=== PATIENT | female | born 1980 | race Caucasian/White ===

== ENCOUNTER → 2017-02-10 | Outpatient (CLI) | payer BC ==
[2017-02-10 15:07] LABS: ALT 67 U/L (9-52); AST 84 U/L (14-36); Alkaline Phosphatase 92 U/L (38-126); Anion Gap 13 mmol/L; Blood Urea Nitrogen 10 mg/dL (7-17); Carbon Dioxide 34 mmol/L (22-30); Chloride 86 mmol/L (98-107); Glucose 312 mg/dL (74-99); Non-African American GFR(MDRD) >60 (>60 ml/min/1.73 sqM); Sodium 133 mmol/L (137-145); Total Bilirubin 0.7 mg/dL (0.2-1.3)
[2017-02-10 15:09] LABS: Potassium 2.7 mmol/L (3.5-5.1)
[2017-02-10 18:56] LABS: Hemoglobin A1C 10.6 % (4.2-6.1)
== END | disposition home or self-care (01) ==
LOC: LABWHC1 14:28
PROVIDERS: ATTEND Psychiatry & Neurology Neurology
DX: R42 Dizziness and giddiness (principal); R90.82 White matter disease, unspecified; H53.8 Other visual disturbances; E11.9 Type 2 diabetes mellitus without complications
CPT/HCPCS: 36415; 80053; 83036

== ENCOUNTER → 2017-02-16 | Outpatient (CLI) | payer BC ==
--- NOTE | 2017-02-16 11:01 | MR ---
EXAMINATION TYPE: MR brain wo/w con DATE OF EXAM: 02/16/2017 COMPARISON: NONE HISTORY: MS TECHNIQUE: Multiplanar, multisequence images of the brain and brainstem is performed without and with IV contras t, utilizing 20 mL intravenous MultiHance . FINDINGS: Diffusion weighted images demonstrate no evidence of a recent infarct or other diffusion ab normality. There is no extra-axial fluid collection. There is vague periventricular hyperintensity o n inversion recovery and T2-weighted sequences especially about the posterior horns of the lateral ve ntricles, some scattered hyperintensities are present, approximately 5 lesions measuring only approxi mately 3 mm in size. The ventricular system and cisternal spaces are normal in size and appearance. The brain volume is age appropriate. Midline structures demonstrate normal morphology. The craniocervical junction appears within normal limits. Post contrast images demonstrate no abnormal enhancement. The dural venous sinuses appear pa tent. The visualized sinuses are clear and the globes are intact. IMPRESSION: Nonspecific white matter demyelination as described. Findings could be compatible with mu ltiple sclerosis.
== END | disposition home or self-care (01) ==
LOC: RADMRIMAIN 09:29
PROVIDERS: ATTEND Nurse Practitioner Acute Care
DX: R90.82 White matter disease, unspecified (principal)
CPT/HCPCS: 70553; A9577

== ENCOUNTER → 2017-02-17 | Outpatient (CLI) | payer BC ==
--- NOTE | 2017-02-17 15:12 | MR ---
EXAMINATION TYPE: MR cervical spine wo con DATE OF EXAM: 02/17/2017 COMPARISON: MR brain 02/16/2017 HISTORY: cervicalgia TECHNIQUE: Multiplanar, multisequence images of the cervical spine were acquired. C2-C3: No evidence for degenerative disc disease. No disc bulge/herniation or protrusion. No Canal stenosis. Foramina are patent bilaterally. C3-C4: Posterior extension of endplate disc complex to the left of midline causes minimal anterior la teral mass effect on the thecal sac. No significant central stenosis or foraminal encroachment. C4-C5: No evidence for degenerative disc disease. No disc bulge/herniation or protrusion. No Canal stenosis. Foramina are patent bilaterally. C5-C6: Minimal posterior spurring, endplate disc complex extends towards the left neural foramen caus ing minimal foraminal encroachment. No significant central stenosis. C6-C7: Broad-based posterior disc bulge causes anterior mass effect on the thecal sac. Lateral extens ion of endplate disc complex causes mild bilateral foraminal encroachment. C7-T1: Right posterior paracentral disc herniation, endplate disc complex causes anterolateral mass e ffect on the thecal sac. No significant central stenosis or foraminal encroachment. Cervical segments are intact. There is normal alignment. Cervical spinal cord is of normal signal. Craniovertebral junction relationships are within normal limits. Suspect a thoracic scoliosis. IMPRESSION: Mild degenerative disc disease, spinal curvature as described.
== END | disposition home or self-care (01) ==
LOC: RADMRIMAIN 09:38
PROVIDERS: ATTEND Nurse Practitioner Acute Care
DX: M50.31 Other cervical disc degeneration, high cervical region (principal); M43.8X2 Other specified deforming dorsopathies, cervical region; G35 Multiple sclerosis
CPT/HCPCS: 72141

== ENCOUNTER 2017-03-03 10:16 | Emergency (ER) | payer BC ==
[2017-03-03] MEDS ORDERED: SODIUM CHLORIDE 0.9% 1,000 ML IV STA ×2 (10:42)
[2017-03-03] MEDS ORDERED: cloNIDine HCL 0.1 MG TAB PO STA (10:43)
--- NOTE | 2017-03-03 11:35 | ED ---
General Adult HPI - General Chief complaint: Recheck/Abnormal Lab/Rx Stated complaint: METHODONE WITHDRAWAL Time Seen by Provider: 03/03/17 10:32 Source: patient Mode of arrival: ambulatory Limitations: no limitations - History of Present Illness Initial comments: This 37-year-old white female presents with a complaint of feeling very shaky and sweaty. She states that this is been going on for approximately one week. She apparently has a history of MS and underwent steroid treatment last week. She states that she had 2 rounds of high-dose steroids at our hospital. Instead time her symptoms have started and she feels as though the steroids have interacted with her methadone and that her methadone is no longer effective. She denies any chest pain or shortness of breath. She denies any fever or chills. She denies any change in her chronic MS related urinary symptoms. She states that she has felt very angry at times and is snapping at her family members. She states that she was told by her primary doctor to come to the ER for further evaluation. She is currently on 115 mg of methadone daily and has been receiving the medication every day. She also is on Xanax and Ritalin. No other complaints or modifying factors. - Related Data Home Medications Medication Instructions Recorded Confirmed Albuterol Sulfate [Proair Hfa] 1 - 2 puff INHALATION RT-Q6H PRN 02/22/17 Furosemide [Lasix] 40 mg PO DAILY 02/22/17 03/03/17 Gabapentin 600 mg PO TID 02/22/17 03/03/17 Methadone HCl [Methadose] 115 mg PO DAILY 02/22/17 03/03/17 Potassium Chloride [Klor-Con 10] 10 meq PO BID 02/22/17 03/03/17 glipiZIDE [Glucotrol] 10 mg PO HS 02/22/17 03/03/17 ALPRAZolam [Xanax] 0.25 mg PO BID PRN 03/03/17 03/03/17 Cephalexin [Keflex] 500 mg PO TID 03/03/17 03/03/17 Ergocalciferol [Vitamin D2] 50,000 unit PO MO 03/03/17 03/03/17 Methylphenidate HCl [Ritalin] 20 mg PO TID 03/03/17 03/03/17 Ondansetron [Zofran] 4 mg PO Q8HR PRN 03/03/17 03/03/17 Previous Rx's Medication Instructions Recorded cloNIDine HCL [Catapres] 0.1 mg PO BID #10 tab 03/03/17 Allergies Allergy/AdvReac Type Severity Reaction Status Date / Time duloxetine [From Cymbalta] Allergy Severe Unknown Verified 03/03/17 11:00 pregabalin [From Lyrica] Allergy Swelling Verified 03/03/17 11:00 sertraline [From Zoloft] Allergy Swelling Verified 03/03/17 11:00 tree nut Allergy Unknown Verified 03/03/17 11:00 Review of Systems ROS Statement: Those systems with pertinent positive or pertinent negative responses have been documented in the HPI. ROS Other: All systems not noted in ROS Statement are negative. Past Medical History Past Medical History: Asthma, Diabetes Mellitus, Hyperlipidemia, Hypertension, Liver Disease, Musculoskeletal Disorder, Neurologic Disorder, Osteoarthritis (OA ), Pneumonia, Skin Disorder, Thyroid Disorder Additional Past Medical History / Comment(s): MS, methadone treatments for chronic pain, chronic hypokalemia, heart murmur, mild left chamber enlargment of heart, psoriasis, blood and protien in urine History of Any Multi-Drug Resistant Organisms: None Reported Past Surgical History: Section Additional Past Surgical History / Comment(s): carpal tunnel right, bilateral breast reduction, c/s x2, D&C Past Psychological History: ADD/ADHD, Anxiety Smoking Status: Current every day smoker Past Alcohol Use History: None Reported Past Drug Use History: Prescription Drug Abuse General Exam - General Exam Comments Initial Comments: GENERAL: The patient is well nourished and well hydrated. VITAL SIGNS: Heart rate, blood pressure, respiratory rate reviewed as recorded in nurse's notes. EYES: Pupils are round and reactive. Extraocular movements are intact. No conjunctival / lid redness or swelling. ENT: No external evidence of injury, swelling, or ecchymosis. Airway is patent. Throat is clear. NECK: Nontender. No swelling or evidence of injury. No subcutaneous emphysema. Trachea is midline. No thyroid mass. HEART: Regular rate and rhythm. Good peripheral pulses. LUNGS/CHEST: Breath sounds clear and equal bilaterally. No rales, rhonchi, or wheezes. No ecchymosis, subcutaneous emphysema, or tenderness. ABDOMEN: Abdomen soft without tenderness. No palpable masses or organomegaly. No peritoneal signs. No abdominal wall swelling or ecchymosis. EXTREMITIES: No extremity tenderness. Normal muscle tone and function. No thoracolumbar tenderness. NEUROLOGIC: Sensation is grossly intact. Cranial nerve exam reveals face is symmetrical, tongue is midline, speech is clear. SKIN: No abrasions or ecchymosis is noted. No induration or masses noted. PSYCHIATRIC: Alert and oriented. Appears anxious at times. Limitations: no limitations Course Vital Signs 03/03/17 03/03/17 10:21 13:10 Temperature 97.5 F L Pulse Rate 92 96 Respiratory 18 20 Rate Blood Pressure 160/86 139/74 O2 Sat by Pulse 96 100 Oximetry Medical Decision Making - Medical Decision Making The patient was seen and examined. All diagnostics were reviewed. An IV is started and she is hydrated. Her blood pressure is elevated and she received clonidine 0.1 mg orally. She also had an EKG done which shows a normal sinus rhythm at a rate of 96. There is no acute ST-T wave changes noted. The heart rate is 96, MS interval is 132, QRS duration is 92, and QTC intervals 472. The magnesium is slightly low and this is replaced. She did receive ample fluid hydration for dehydration. The other labs are essentially within normal limits with minor deviations. She seems to think that her methadone is not working properly due to the steroids. Overall, it is felt that she more likely has adverse effects of the steroids. Nevertheless, she is feeling much improved after clonidine. Her blood pressure did improve as well. The case is discussed with her primary care physician and he would like me to contact her neurologist. Case is discussed with Dr. Barrett and he also feels that it likely is an adverse effect of the high-dose steroids. He apparently is seeing her in a couple of days for some additional neurologic testing and can reevaluate her at that time. It is felt as though she is stable for discharge and is in much less distress on recheck. - Lab Data Result diagrams: 03/03/17 11:11 03/03/17 11:11 Lab Results 03/03/17 03/03/17 03/03/17 Range/Units 11:11 11:11 11:11 WBC 9.7 (3.8-10.6) k/uL RBC 5.01 (3.80-5.40) m/uL Hgb 15.2 (11.4-16.0) gm/dL Hct 41.7 (34.0-46.0) % MCV 83.2 (80.0-100.0) fL MCH 30.4 (25.0-35.0) pg MCHC 36.5 (31.0-37.0) g/dL RDW 14.1 (11.5-15.5) % Plt Count 210 (150-450) k/uL Neutrophils % 65 % Lymphocytes % 27 % Monocytes % 3 % Eosinophils % 3 % Basophils % 1 % Neutrophils # 6.3 (1.3-7.7) k/uL Lymphocytes # 2.6 (1.0-4.8) k/uL Monocytes # 0.3 (0-1.0) k/uL Eosinophils # 0.3 (0-0.7) k/uL Basophils # 0.1 (0-0.2) k/uL PT 10.1 (9.0-12.0) sec INR 1.0 (<1.1) APTT 23.3 (22.0-30.0) sec Sodium 133 L (137-145) mmol/L Potassium 4.6 (3.5-5.1) mmol/L Chloride 97 L (98-107) mmol/L Carbon Dioxide 19 L (22-30) mmol/L Anion Gap 17 mmol/L BUN 15 (7-17) mg/dL Creatinine 0.38 L (0.52-1.04) mg/dL Est GFR (MDRD) Af Amer >60 (>60 ml/min/1.73 sqM) Est GFR (MDRD) Non-Af >60 (>60 ml/min/1.73 sqM) Glucose 246 H (74-99) mg/dL Calcium 10.2 (8.4-10.2) mg/dL Phosphorus 3.5 (2.5-4.5) mg/dL Magnesium 1.4 L (1.6-2.3) mg/dL Total Bilirubin 0.7 (0.2-1.3) mg/dL AST 46 H (14-36) U/L ALT 38 (9-52) U/L Alkaline Phosphatase 73 (38-126) U/L Total Protein 7.7 (6.3-8.2) g/dL Albumin 4.4 (3.5-5.0) g/dL TSH 2.160 (0.465-4.680) mIU/L Urine Color Urine Appearance (Clear) Urine pH (5.0-8.0) Ur Specific [place] (1.001-1.035) Urine Protein (Negative) Urine Glucose (UA) (Negative) Urine Ketones (Negative) Urine Blood (Negative) Urine Nitrite (Negative) Urine Bilirubin (Negative) Urine Urobilinogen (<2.0) mg/dL Ur Leukocyte Esterase (Negative) Urine RBC (0-5) /hpf Urine WBC (0-5) /hpf Ur Squamous Epith Cells (0-4) /hpf Urine Mucus (None) /hpf Acetone, Qual Negative (Negative) 03/03/17 Range/Units 11:11 WBC (3.8-10.6) k/uL RBC (3.80-5.40) m/uL Hgb (11.4-16.0) gm/dL Hct (34.0-46.0) % MCV (80.0-100.0) fL MCH (25.0-35.0) pg MCHC (31.0-37.0) g/dL RDW (11.5-15.5) % Plt Count (150-450) k/uL Neutrophils % % Lymphocytes % % Monocytes % % Eosinophils % % Basophils % % Neutrophils # (1.3-7.7) k/uL Lymphocytes # (1.0-4.8) k/uL Monocytes # (0-1.0) k/uL Eosinophils # (0-0.7) k/uL Basophils # (0-0.2) k/uL PT (9.0-12.0) sec INR (<1.1) APTT (22.0-30.0) sec Sodium (137-145) mmol/L Potassium (3.5-5.1) mmol/L Chloride (98-107) mmol/L Carbon Dioxide (22-30) mmol/L Anion Gap mmol/L BUN (7-17) mg/dL Creatinine (0.52-1.04) mg/dL Est GFR (MDRD) Af Amer (>60 ml/min/1.73 sqM) Est GFR (MDRD) Non-Af (>60 ml/min/1.73 sqM) Glucose (74-99) mg/dL Calcium (8.4-10.2) mg/dL Phosphorus (2.5-4.5) mg/dL Magnesium (1.6-2.3) mg/dL Total Bilirubin (0.2-1.3) mg/dL AST (14-36) U/L ALT (9-52) U/L Alkaline Phosphatase (38-126) U/L Total Protein (6.3-8.2) g/dL Albumin (3.5-5.0) g/dL TSH (0.465-4.680) mIU/L Urine Color Yellow Urine Appearance Cloudy H (Clear) Urine pH 6.0 (5.0-8.0) Ur Specific [place] 1.022 (1.001-1.035) Urine Protein 3+ H (Negative) Urine Glucose (UA) 4+ H (Negative) Urine Ketones 1+ H (Negative) Urine Blood Small H (Negative) Urine Nitrite Negative (Negative) Urine Bilirubin Negative (Negative) Urine Urobilinogen <2.0 (<2.0) mg/dL Ur Leukocyte Esterase Negative (Negative) Urine RBC 2 (0-5) /hpf Urine WBC 3 (0-5) /hpf Ur Squamous Epith Cells 12 H (0-4) /hpf Urine Mucus Rare H (None) /hpf Acetone, Qual (Negative) Disposition Clinical Impression: Hypertension, Anxiety, Multiple sclerosis, Chronic narcotic use, Shakiness, Dehydration, Hypomagnesemia Disposition: HOME SELF-CARE Condition: Good Instructions: Hypertension (ED), Hypomagnesemia (ED), Dehydration (ED) Prescriptions: cloNIDine HCL [Catapres] 0.1 mg PO BID #10 tab Referrals: Elier Andrew MD [Primary Care Provider] - 1-2 days Adrianna Barrett MD [STAFF PHYSICIAN] - 03/05/17 Time of Disposition: 14:11
[2017-03-03 11:42] LABS: Basophils # (A) 0.1 k/uL (0-0.2); Basophils % (A) 1 %; Eosinophils # (A) 0.3 k/uL (0-0.7); Eosinophils % (A) 3 %; HCT 41.7 % (34.0-46.0); HDW 3.05; HGB 15.2 gm/dL (11.4-16.0); Luc % (Auto) 2; Lymphocytes # (A) 2.6 k/uL (1.0-4.8); Lymphocytes % (A) 27 %; MCH 30.4 pg (25.0-35.0); MCHC 36.5 g/dL (31.0-37.0); MCV 83.2 fL (80.0-100.0); Monocytes # (A) 0.3 k/uL (0-1.0); Monocytes % (A) 3 %; Neutrophils # (A) 6.3 k/uL (1.3-7.7); Neutrophils % (A) 65 %; RBC 5.01 m/uL (3.80-5.40); RDW 14.1 % (11.5-15.5); WBC 9.7 k/uL (3.8-10.6); WBC (Perox) 9.19
[2017-03-03 11:53] LABS: Anion Gap 17 mmol/L; Carbon Dioxide 19 mmol/L (22-30); Chloride 97 mmol/L (98-107); Sodium 133 mmol/L (137-145)
[2017-03-03 12:03] LABS: Partial Thromboplastin Time 23.3 sec (22.0-30.0); Prothrombin Time 10.1 sec (9.0-12.0)
[2017-03-03 12:12] LABS: Appearance,Urine Cloudy (Clear); Bilirubin,Urine Negative (Negative); Glucose,Urine (UA) 4+ (Negative); Ketones,Urine 1+ (Negative); Leukocyte Esterase,Urine Negative (Negative); Mucus,Urine Rare /hpf; Nitrite,Urine Negative (Negative); Particle Count 4562; Protein,Urine 3+ (Negative); RBC,Urine 2 /hpf (0-5); Specific Gravity,Urine 1.022 (1.001-1.035); Squamous Epithelial Cell,Urine 12 /hpf (0-4); UA Billing (MACRO vs. MICRO) MICRO; Urobilinogen,Urine <2.0 mg/dL (<2.0); WBC,Urine 3 /hpf (0-5)
[2017-03-03 12:21] LABS: ALT 38 U/L (9-52); AST 46 U/L (14-36); Alkaline Phosphatase 73 U/L (38-126); Blood Urea Nitrogen 15 mg/dL (7-17); Calcium 10.2 mg/dL (8.4-10.2); Glucose 246 mg/dL (74-99); Magnesium 1.4 mg/dL (1.6-2.3); Non-African American GFR(MDRD) >60 (>60 ml/min/1.73 sqM); Phosphorous 3.5 mg/dL (2.5-4.5); Total Bilirubin 0.7 mg/dL (0.2-1.3); Total Protein 7.7 g/dL (6.3-8.2)
[2017-03-03] MEDS ORDERED: MAGNESIUM SULFATE-D5W PMX 1 GM in DEXTROSE/WATER 1 100ML.BAG IVPB ONE (12:55)
[2017-03-03 12:58] LABS: Potassium 4.6 mmol/L (3.5-5.1)
[2017-03-03 14:46] VITALS: BP 141/79; PULSE 89; RESP 18; TEMP 97.3
== END 2017-03-03 14:54 | disposition home or self-care (01) ==
LOC: EC 10:16
DX: E86.0 Dehydration (principal); E83.42 Hypomagnesemia; Z79.891 Long term (current) use of opiate analgesic; G35 Multiple sclerosis; F41.9 Anxiety disorder, unspecified; I10 Essential (primary) hypertension; E11.9 Type 2 diabetes mellitus without complications; L98.9 Disorder of the skin and subcutaneous tissue, unspecified; F90.9 Attention-deficit hyperactivity disorder, unspecified type; F17.200 Nicotine dependence, unspecified, uncomplicated; Z79.84 Long term (current) use of oral hypoglycemic drugs; Z79.899 Other long term (current) drug therapy; Z88.8 Allergy status to other drugs, medicaments and biological substances; Z91.018 Allergy to other foods
CPT/HCPCS: 36415; 93005; 80053; 82009; 83735; 84100; 84443; 85025; 85610; 85730; 81001; 99284; 96365; 96361 ×3; J3475

== ENCOUNTER 2017-04-04 20:55 | Inpatient (IN) | payer BC ==
[2017-04-04] MEDS ORDERED: MORPHINE SULFATE 4 MG/ML SYRINGE IV STA (20:59)
[2017-04-04] MEDS ORDERED: SODIUM CHLORIDE 0.9% 1,000 ML IV STA ×3 (20:59→22:53)
[2017-04-04] MEDS ORDERED: ONDANSETRON 4 MG/2 ML VIAL IVP STA (20:59)
[2017-04-04] MEDS ORDERED: RX INFO: IV CONTRAST WAS GIVEN 1 EACH MISC MISCELLANE PRN (20:59)
[2017-04-04] MEDS ORDERED: ACETAMINOPHEN IV (For NPO) 1,000 MG in EMPTY BAG 1 BAG IVPB STA (21:18)
[2017-04-04] MEDS ORDERED: KETOROLAC 30 MG/ML 1 ML VIAL IVP STA (21:18)
--- NOTE | 2017-04-04 21:18 | ED ---
General Adult HPI - General Chief complaint: Abdominal Pain Stated complaint: abd pain Time Seen by Provider: 04/04/17 20:57 Source: EMS, RN notes reviewed, old records reviewed Mode of arrival: EMS Limitations: no limitations - History of Present Illness Initial comments: This is a 37-year-old female here for evaluation of down pain. Bowel pain nausea and diarrhea. Patient has history of MS. Patient fits family members including daughter who is also sick. Patient is complaining of diffuse generalized abdominal pain. Nausea. Vomiting. No history of similar symptoms. No history of bowel surgery. - Related Data Home Medications Medication Instructions Recorded Confirmed Albuterol Sulfate [Proair Hfa] 1 - 2 puff INHALATION RT-Q6H PRN 02/22/17 Furosemide [Lasix] 40 mg PO TID 02/22/17 04/04/17 Potassium Chloride [Klor-Con 10] 10 meq PO BID 02/22/17 04/04/17 ALPRAZolam [Xanax] 0.25 mg PO BID PRN 03/03/17 04/04/17 Ergocalciferol [Vitamin D2] 50,000 unit PO MO 03/03/17 04/04/17 Methylphenidate HCl [Ritalin] 20 mg PO TID 03/03/17 04/04/17 Ondansetron [Zofran] 4 mg PO Q8HR PRN 03/03/17 04/04/17 Gabapentin [Neurontin] 600 mg PO TID 04/04/17 04/04/17 Methadone HCl [Methadone Intensol] 115 mg PO DAILY 04/04/17 04/04/17 Allergies Allergy/AdvReac Type Severity Reaction Status Date / Time duloxetine [From Cymbalta] Allergy Severe Unknown Verified 04/04/17 22:08 pregabalin [From Lyrica] Allergy Swelling Verified 04/04/17 22:08 sertraline [From Zoloft] Allergy Swelling Verified 04/04/17 22:08 tree nut Allergy Unknown Verified 04/04/17 22:08 Review of Systems ROS Statement: Those systems with pertinent positive or pertinent negative responses have been documented in the HPI. ROS Other: All systems not noted in ROS Statement are negative. Past Medical History Past Medical History: Asthma, Diabetes Mellitus, Hyperlipidemia, Hypertension, Liver Disease, Musculoskeletal Disorder, Neurologic Disorder, Osteoarthritis (OA ), Pneumonia, Skin Disorder, Thyroid Disorder Additional Past Medical History / Comment(s): MS, methadone treatments for chronic pain, chronic hypokalemia, heart murmur, mild left chamber enlargment of heart, psoriasis, blood and protien in urine History of Any Multi-Drug Resistant Organisms: None Reported Past Surgical History: Section Additional Past Surgical History / Comment(s): carpal tunnel right, bilateral breast reduction, c/s x2, D&C Past Psychological History: ADD/ADHD, Anxiety Smoking Status: Current every day smoker Past Alcohol Use History: Daily Past Drug Use History: Prescription Drug Abuse General Exam Limitations: no limitations General appearance: alert, in no apparent distress Head exam: Present: atraumatic, normocephalic, normal inspection Eye exam: Present: normal appearance, PERRL, EOMI. Absent: scleral icterus, conjunctival injection, periorbital swelling ENT exam: Present: normal exam, mucous membranes moist Neck exam: Present: normal inspection. Absent: tenderness, meningismus, lymphadenopathy Respiratory exam: Present: normal lung sounds bilaterally. Absent: respiratory distress, wheezes, rales, rhonchi, stridor Cardiovascular Exam: Present: regular rate, normal rhythm, normal heart sounds. Absent: systolic murmur, diastolic murmur, rubs, gallop, clicks GI/Abdominal exam: Present: soft, normal bowel sounds. Absent: distended, tenderness, guarding, rebound, rigid Extremities exam: Present: normal inspection, full ROM, normal capillary refill. Absent: tenderness, pedal edema, joint swelling, calf tenderness Back exam: Present: normal inspection Neurological exam: Present: alert, oriented X3, CN II-XII intact Psychiatric exam: Present: normal affect, normal mood Skin exam: Present: warm, dry, intact, normal color. Absent: rash Course Vital Signs 04/04/17 04/04/17 21:01 22:27 Temperature 101.4 F H Pulse Rate 107 H 116 H Respiratory 20 20 Rate Blood Pressure 170/108 181/94 O2 Sat by Pulse 96 94 L Oximetry - Reevaluation(s) Reevaluation #1: 04/04/17 22:44 Patient's pain is well-controlled at this time EKG Findings - EKG Comments: EKG Findings:: EKG shows sinus tachycardia rate of 108, [place] 126, QRS 80, QTC 527 Medical Decision Making - Medical Decision Making [id number] ER for evaluation of the pain. Patient found to be in DKA, Yael for DKA protocol. Patient also with fever, - Lab Data Result diagrams: 04/04/17 22:10 04/04/17 22:10 Lab Results 04/04/17 04/04/17 04/04/17 Range/Units 21:44 22:10 22:10 WBC 11.3 H (3.8-10.6) k/uL RBC 5.88 H (3.80-5.40) m/uL Hgb 17.4 H (11.4-16.0) gm/dL Hct 50.2 H (34.0-46.0) % MCV 85.3 (80.0-100.0) fL MCH 29.6 (25.0-35.0) pg MCHC 34.7 (31.0-37.0) g/dL RDW 14.7 (11.5-15.5) % Plt Count 288 (150-450) k/uL Neutrophils % 85 % Lymphocytes % 11 % Monocytes % 2 % Eosinophils % 1 % Basophils % 1 % Neutrophils # 9.6 H (1.3-7.7) k/uL Lymphocytes # 1.3 (1.0-4.8) k/uL Monocytes # 0.3 (0-1.0) k/uL Eosinophils # 0.1 (0-0.7) k/uL Basophils # 0.1 (0-0.2) k/uL Poikilocytosis Slight Sodium 133 L (137-145) mmol/L Potassium 4.8 (3.5-5.1) mmol/L Chloride 99 (98-107) mmol/L Carbon Dioxide 16 L (22-30) mmol/L Anion Gap 18 mmol/L BUN 13 (7-17) mg/dL Creatinine 0.50 L (0.52-1.04) mg/dL Est GFR (MDRD) Af Amer >60 (>60 ml/min/1.73 sqM) Est GFR (MDRD) Non-Af >60 (>60 ml/min/1.73 sqM) Glucose 530 H* (74-99) mg/dL Plasma Lactic Acid David (0.7-2.0) mmol/L Calcium 8.7 (8.4-10.2) mg/dL Phosphorus 3.6 (2.5-4.5) mg/dL Magnesium 1.3 L (1.6-2.3) mg/dL Total Bilirubin 1.4 H (0.2-1.3) mg/dL AST 32 (14-36) U/L ALT 50 (9-52) U/L Alkaline Phosphatase 99 (38-126) U/L Total Protein 7.2 (6.3-8.2) g/dL Albumin 3.8 (3.5-5.0) g/dL Urine Color Light [place] Urine Appearance Clear (Clear) Urine pH 6.0 (5.0-8.0) Ur Specific [place] 1.026 (1.001-1.035) Urine Protein 3+ H (Negative) Urine Glucose (UA) 4+ H (Negative) Urine Ketones 3+ H (Negative) Urine Blood Large H (Negative) Urine Nitrite Negative (Negative) Urine Bilirubin Negative (Negative) Urine Urobilinogen <2.0 (<2.0) mg/dL Ur Leukocyte Esterase Negative (Negative) Urine RBC >182 H (0-5) /hpf Ur Squamous Epith Cells <1 (0-4) /hpf Hyaline Casts 19 H (0-2) /lpf 04/04/17 Range/Units 22:10 WBC (3.8-10.6) k/uL RBC (3.80-5.40) m/uL Hgb (11.4-16.0) gm/dL Hct (34.0-46.0) % MCV (80.0-100.0) fL MCH (25.0-35.0) pg MCHC (31.0-37.0) g/dL RDW (11.5-15.5) % Plt Count (150-450) k/uL Neutrophils % % Lymphocytes % % Monocytes % % Eosinophils % % Basophils % % Neutrophils # (1.3-7.7) k/uL Lymphocytes # (1.0-4.8) k/uL Monocytes # (0-1.0) k/uL Eosinophils # (0-0.7) k/uL Basophils # (0-0.2) k/uL Poikilocytosis Sodium (137-145) mmol/L Potassium (3.5-5.1) mmol/L Chloride (98-107) mmol/L Carbon Dioxide (22-30) mmol/L Anion Gap mmol/L BUN (7-17) mg/dL Creatinine (0.52-1.04) mg/dL Est GFR (MDRD) Af Amer (>60 ml/min/1.73 sqM) Est GFR (MDRD) Non-Af (>60 ml/min/1.73 sqM) Glucose (74-99) mg/dL Plasma Lactic Acid David 3.3 H* (0.7-2.0) mmol/L Calcium (8.4-10.2) mg/dL Phosphorus (2.5-4.5) mg/dL Magnesium (1.6-2.3) mg/dL Total Bilirubin (0.2-1.3) mg/dL AST (14-36) U/L ALT (9-52) U/L Alkaline Phosphatase (38-126) U/L Total Protein (6.3-8.2) g/dL Albumin (3.5-5.0) g/dL Urine Color Urine Appearance (Clear) Urine pH (5.0-8.0) Ur Specific [place] (1.001-1.035) Urine Protein (Negative) Urine Glucose (UA) (Negative) Urine Ketones (Negative) Urine Blood (Negative) Urine Nitrite (Negative) Urine Bilirubin (Negative) Urine Urobilinogen (<2.0) mg/dL Ur Leukocyte Esterase (Negative) Urine RBC (0-5) /hpf Ur Squamous Epith Cells (0-4) /hpf Hyaline Casts (0-2) /lpf - Radiology Data Radiology results: report reviewed (Chest x-ray negative for acute disease, CT of and pelvis negative for acute disease), image reviewed Critical Care Time Critical Care Time: Yes Total Critical Care Time: 31 Disposition Clinical Impression: Abdominal pain, DKA (diabetic ketoacidoses), Fever Disposition: ADMITTED IP TO THIS [facility] Condition: Serious Referrals: Elier Andrew MD [Primary Care Provider] - 1-2 days
[2017-04-04 22:06] LABS: Appearance,Urine Clear (Clear); Bilirubin,Urine Negative (Negative); Glucose,Urine (UA) 4+ (Negative); Leukocyte Esterase,Urine Negative (Negative); Nitrite,Urine Negative (Negative); Particle Count 1957; Protein,Urine 3+ (Negative); RBC,Urine >182 /hpf (0-5); Specific Gravity,Urine 1.026 (1.001-1.035); Squamous Epithelial Cell,Urine <1 /hpf (0-4); UA Billing (MACRO vs. MICRO) MICRO; Urobilinogen,Urine <2.0 mg/dL (<2.0)
[2017-04-04 22:07] LABS: Ketones,Urine 3+ (Negative)
[2017-04-04 22:24] LABS: Basophils # (A) 0.1 k/uL (0-0.2); Basophils % (A) 1 %; CH 29.3; CHCM 34.6; Eosinophils # (A) 0.1 k/uL (0-0.7); Eosinophils % (A) 1 %; HCT 50.2 % (34.0-46.0); HGB 17.4 gm/dL (11.4-16.0); Luc # (Auto) 0.13; Luc % (Auto) 1; Lymphocytes # (A) 1.3 k/uL (1.0-4.8); Lymphocytes % (A) 11 %; MCH 29.6 pg (25.0-35.0); MCHC 34.7 g/dL (31.0-37.0); MCV 85.3 fL (80.0-100.0); Mean Platelet Volume 6.9; Monocytes # (A) 0.3 k/uL (0-1.0); Monocytes % (A) 2 %; Neutrophils # (A) 9.6 k/uL (1.3-7.7); Neutrophils % (A) 85 %; Poikilocytosis Slight; RBC 5.88 m/uL (3.80-5.40); RDW 14.7 % (11.5-15.5); WBC 11.3 k/uL (3.8-10.6); WBC (Perox) 11.46
[2017-04-04 22:34] LABS: ALT 50 U/L (9-52); AST 32 U/L (14-36); Alkaline Phosphatase 99 U/L (38-126); Anion Gap 18 mmol/L; Blood Urea Nitrogen 13 mg/dL (7-17); Calcium 8.7 mg/dL (8.4-10.2); Carbon Dioxide 16 mmol/L (22-30); Chloride 99 mmol/L (98-107); Magnesium 1.3 mg/dL (1.6-2.3); Non-African American GFR(MDRD) >60 (>60 ml/min/1.73 sqM); Phosphorous 3.6 mg/dL (2.5-4.5); Potassium 4.8 mmol/L (3.5-5.1); Sodium 133 mmol/L (137-145); Total Bilirubin 1.4 mg/dL (0.2-1.3); Total Protein 7.2 g/dL (6.3-8.2)
[2017-04-04 22:40] LABS: Glucose 530 mg/dL (74-99)
[2017-04-04] MEDS ORDERED: SODIUM CHLORIDE 0.9% 500 ML IV STA ×2 (22:42→22:53)
[2017-04-04] MEDS ORDERED: INSULIN REGULAR BOLUS (FROM DRIP BAG) IV ONE (22:42)
[2017-04-04] MEDS ORDERED: hydrALAZINE HCL 20 MG/ML 1 ML VIAL IVP PRN (23:21)
[2017-04-05] LABS: Glucose,Whole Blood 442 mg/dL (75-99)
[2017-04-05] MEDS: INSULIN REGULAR 100 UNIT in SODIUM CHLORIDE 0.9% 100 ML IV SCH ×2 (00:01→10:15)
--- NOTE | 2017-04-05 00:06 | XR ---
EXAM: XR Chest, 2 Views CLINICAL HISTORY: Reason: Weakness TECHNIQUE: Frontal and lateral views of the chest. COMPARISON: None FINDINGS: Lungs/pleura: Mild prominence of the lung markings may be accentuated by low lung volumes. No focal consolidation. No pleural effusion or pneumothorax. Heart/mediastinum: Borderline prominence of the cardiac silhouette is likely due to accentuation by low lung volumes. Soft tissues: Unremarkable. Bones: No acute fracture. Degenerative changes of the spine. IMPRESSION: Hypoventilatory changes without acute disease.
--- NOTE | 2017-04-05 00:14 | CT ---
EXAM: CT Abdomen and Pelvis With Intravenous Contrast CLINICAL HISTORY: Reason: Pain TECHNIQUE: Axial computed tomography images of the abdomen and pelvis with intravenous contrast. CTDI is 41.5 mGy and DLP is 2755.70 mGy-cm. This CT exam was performed using one or more of the following dose reduction techniques: automated exposure control, adjustment of the mA and/or kV according to patient size, and/or use of iterative reconstruction technique. COMPARISON: None. FINDINGS: Lower thorax: Subsegmental atelectasis lung bases. No pleural or pericardial effusion. ABDOMEN: Liver: Moderate hepatic steatosis. Hepatomegaly. Gallbladder and bile ducts: Multiple hypodense cholesterol stones in the gallbladder. No biliary dilatation. Gallbladder is mildly distended, but surrounding fluid and fat stranding is likely related to the pancreatitis rather than acute cholecystitis. Pancreas: Mildly hypoattenuating parenchyma in the neck with peripancreatic fluid and prominent inflammatory fat stranding extending into the mesentery, omentum and anterior pararenal spaces consistent with acute pancreatitis. No pseudocyst or organized abscess. Mild amount of pancreatic necrosis at that pancreatic neck cannot be excluded. Spleen: Small splenule. No focal lesion. Adrenals: Normal. Kidneys and ureters: Normal. No hydronephrosis or stone. Stomach and bowel: Bowel is normal caliber. No obstruction. No mucosal thickening. Appendix: Normal appendix. PELVIS: Bladder: Unremarkable. No mass. Reproductive: Unremarkable as visualized. ABDOMEN and PELVIS: Intraperitoneal space: Unremarkable. No free air. No significant fluid collection. Bones/joints: Degenerative changes in the spine and transitional anatomy at the lumbosacral junction. Degenerative changes of the hips. No fracture or bone lesion. No dislocation. Soft tissues: Small fat-containing umbilical hernia. Mild subcutaneous edema in the lower anterior abdominal wall. Vasculature: Unremarkable. No abdominal aortic aneurysm. No thrombus is identified in the vascular structures near the pancreas. Lymph nodes: Unremarkable. No enlarged lymph nodes. IMPRESSION: 1. Acute pancreatitis with prominent peripancreatic fluid and inflammation. Small amount of necrosis in the region of the pancreatic neck cannot be excluded, but no other complication identified. 2. Cholelithiasis. Fat stranding and inflammatory change around the gallbladder are likely reactive to the pancreatitis changes rather than acute cholecystitis. 3. Moderate hepatic steatosis and hepatomegaly.
[2017-04-05] MEDS: MAGNESIUM SULFATE-D5W PMX 1 GM in DEXTROSE/WATER 1 100ML.BAG IVPB SCH ×4 (00:16→11:15)
[2017-04-05] MEDS ORDERED: SODIUM CHLORIDE 0.9% 500 ML IV ONE (00:23)
[2017-04-05 00:39] LABS: Glucose,Whole Blood 398 mg/dL (75-99)
[2017-04-05] MEDS: ONDANSETRON 4 MG/2 ML VIAL IVP PRN ×3 (01:45→22:05)
[2017-04-05] MEDS: SODIUM CHLORIDE 0.9% 1,000 ML IV SCH ×3 (01:48→08:03)
[2017-04-05 01:54] LABS: Glucose,Whole Blood 343 mg/dL (75-99)
[2017-04-05 03:05] LABS: Glucose,Whole Blood 297 mg/dL (75-99)
[2017-04-05] MEDS: HYDROmorphone 1 MG/ML 1 ML SYRINGE IVP PRN ×4 (03:38→22:05)
[2017-04-05 04:27] LABS: Glucose,Whole Blood 284 mg/dL (75-99)
[2017-04-05 05:05] LABS: Anion Gap 10 mmol/L; Blood Urea Nitrogen 11 mg/dL (7-17); Carbon Dioxide 18 mmol/L (22-30); Chloride 108 mmol/L (98-107); Glucose 266 mg/dL (74-99); Non-African American GFR(MDRD) >60 (>60 ml/min/1.73 sqM); Potassium 3.7 mmol/L (3.5-5.1); Sodium 136 mmol/L (137-145)
[2017-04-05 05:26] LABS: Glucose,Whole Blood 231 mg/dL (75-99)
[2017-04-05 06:28] LABS: Glucose,Whole Blood 220 mg/dL (75-99)
[2017-04-05 07:31] LABS: Glucose,Whole Blood 247 mg/dL (75-99)
[2017-04-05] MEDS ORDERED: ALPRAZolam 0.25 MG TAB PO PRN (07:44)
[2017-04-05] MEDS: D5-0.45% NACL WITH KCL 20MEQ/L 1,000 ML IV SCH ×3 (07:58→16:09)
[2017-04-05] MEDS: POTASSIUM PHOSPHATE 10 MMOL in SODIUM CHLORIDE 0.9% 250 ML IV SCH ×3 (07:58→11:15)
[2017-04-05] MEDS: PIPERACILLIN-TAZOBACTAM 3.375 GM in DEXTROSE/WATER 1 50ML.BAG IVPB SCH ×3 (07:59→23:36)
[2017-04-05 08:25] LABS: Magnesium 1.5 mg/dL (1.6-2.3)
[2017-04-05 08:26] LABS: Glucose,Whole Blood 194 mg/dL (75-99)
[2017-04-05] MEDS: GABAPENTIN 300 MG CAP PO SCH ×3 (08:53→23:37)
[2017-04-05 08:56] LABS: ALT 35 U/L (9-52); AST 28 U/L (14-36); Alkaline Phosphatase 67 U/L (38-126); Anion Gap 12 mmol/L; Blood Urea Nitrogen 11 mg/dL (7-17); Calcium 6.6 mg/dL (8.4-10.2); Carbon Dioxide 16 mmol/L (22-30); Chloride 107 mmol/L (98-107); Glucose 218 mg/dL (74-99); Non-African American GFR(MDRD) >60 (>60 ml/min/1.73 sqM); Potassium 3.7 mmol/L (3.5-5.1); Sodium 135 mmol/L (137-145); Total Protein 5.6 g/dL (6.3-8.2)
[2017-04-05 08:59] LABS: Basophils # (A) 0.1 k/uL (0-0.2); Basophils % (A) 1 %; CHCM 34.4; Eosinophils % (A) 0 %; HCT 48.4 % (34.0-46.0); HDW 3.38; HGB 16.7 gm/dL (11.4-16.0); Luc # (Auto) 0.09; Luc % (Auto) 1; Lymphocytes # (A) 1.1 k/uL (1.0-4.8); Lymphocytes % (A) 12 %; MCH 29.3 pg (25.0-35.0); MCHC 34.5 g/dL (31.0-37.0); MCV 84.8 fL (80.0-100.0); Mean Platelet Volume 6.9; Monocytes # (A) 0.2 k/uL (0-1.0); Monocytes % (A) 3 %; Neutrophils # (A) 7.5 k/uL (1.3-7.7); Neutrophils % (A) 83 %; RBC 5.71 m/uL (3.80-5.40); RDW 14.7 % (11.5-15.5); WBC (Perox) 8.86
[2017-04-05 09:11] LABS: Glucose,Whole Blood 222 mg/dL (75-99)
[2017-04-05] MEDS ORDERED: Magnesium Replacement Protocol 1 EACH MISC MISCELLANE PRN (09:24)
[2017-04-05] MEDS: LORazepam 2 MG/ML SYRINGE IV PRN ×2 (10:14→17:29)
[2017-04-05 11:35] LABS: Glucose,Whole Blood 210 mg/dL (75-99)
[2017-04-05 11:56] LABS: Hemoglobin A1C 10.4 % (4.2-6.1)
[2017-04-05 12:24] LABS: Glucose,Whole Blood 245 mg/dL (75-99)
[2017-04-05 14:38] LABS: Glucose,Whole Blood 222 mg/dL (75-99)
[2017-04-05 15:28] LABS: Glucose,Whole Blood 193 mg/dL (75-99)
[2017-04-05 16:01] LABS: Glucose,Whole Blood 191 mg/dL (75-99)
[2017-04-05] MEDS: METHADONE 10 MG TAB PO SCH (16:01)
[2017-04-05 17:12] LABS: Glucose,Whole Blood 210 mg/dL (75-99)
--- NOTE | 2017-04-05 17:50 | P.GSCN ---
History of Present Illness Consult date: 04/05/17 Reason for Consult: Acute pancreatitis History of present illness: Patient came to the hospital yesterday evening. The patient was having complaints of abdominal pain and diarrhea. Pain is mostly epigastric with radiation to the back. She has less discomfort when sitting upright. Denies any history of pancreatitis in the past. Patient was admitted with diabetic ketoacidosis. CAT scan of the abdomen showed inflammatory changes of the pancreatic bed. Amylase and lipase are elevated. Gallstones were also seen. Patient says her pain is slightly improved. She has had numerous episodes of nausea and vomiting today. Hemoglobin A1c was over 10. Patient is afebrile. White blood cell count was slightly elevated initially although normalized now. Lactic acid was elevated on admission and is trending downwards with still elevated. IV Zosyn was started by the ER and is still going. She is still receiving fluids at 1 50/h. Review of Systems The patient denies any acute changes in vision or hearing, no dysphagia or odynophagia, no chest pain or shortness of breath, no dysuria or hematuria, no headache, no runny nose, no rectal bleeding or melena, no unexplained weight loss Past Medical History Past Medical History: Asthma, Diabetes Mellitus, Hyperlipidemia, Hypertension, Liver Disease, Musculoskeletal Disorder, Neurologic Disorder, Osteoarthritis (OA ), Pneumonia, Skin Disorder, Thyroid Disorder Additional Past Medical History / Comment(s): MS, methadone treatments for chronic pain, chronic hypokalemia, heart murmur, mild left chamber enlargment of heart, psoriasis, blood and protien in urine History of Any Multi-Drug Resistant Organisms: None Reported Past Surgical History: Section Additional Past Surgical History / Comment(s): carpal tunnel right, bilateral breast reduction, c/s x2, D&C Smoking Status: Current every day smoker Medications and Allergies Home Medications Medication Instructions Recorded Confirmed Type Albuterol Sulfate [Proair Hfa] 1 - 2 puff INHALATION RT-Q6H PRN 02/22/17 History Furosemide [Lasix] 40 mg PO TID 02/22/17 04/04/17 History Potassium Chloride [Klor-Con 10] 10 meq PO BID 02/22/17 04/04/17 History ALPRAZolam [Xanax] 0.25 mg PO BID PRN 03/03/17 04/04/17 History Ergocalciferol [Vitamin D2] 50,000 unit PO MO 03/03/17 04/04/17 History Methylphenidate HCl [Ritalin] 20 mg PO TID 03/03/17 04/04/17 History Ondansetron [Zofran] 4 mg PO Q8HR PRN 03/03/17 04/04/17 History Gabapentin [Neurontin] 600 mg PO TID 04/04/17 04/04/17 History Methadone HCl [Methadone Intensol] 120 mg PO DAILY 04/04/17 04/05/17 History Allergies Allergy/AdvReac Type Severity Reaction Status Date / Time duloxetine [From Cymbalta] Allergy Severe Unknown Verified 04/04/17 22:08 pregabalin [From Lyrica] Allergy Swelling Verified 04/04/17 22:08 sertraline [From Zoloft] Allergy Swelling Verified 04/04/17 22:08 tree nut Allergy Unknown Verified 04/04/17 22:08 Surgical - Exam Vital Signs Temp Pulse Resp BP Pulse Ox 101.4 F H 107 H 20 170/108 96 04/04/17 21:01 04/04/17 21:01 04/04/17 21:01 04/04/17 21:01 04/04/17 21:01 Physical exam: General: unkempt appearing, Well-developed, well-nourished HEENT: Normocephalic, sclerae nonicteric Abdomen: Moderate epigastric tenderness, nondistended Extremities: No edema Neuro: Alert and oriented Results - Labs 04/05/17 08:01 04/05/17 08:09 Abnormal Lab Results - Last 24 Hours (Table) 04/04/17 04/04/17 04/04/17 Range/Units 21:44 22:10 22:10 WBC 11.3 H (3.8-10.6) k/uL RBC 5.88 H (3.80-5.40) m/uL Hgb 17.4 H (11.4-16.0) gm/dL Hct 50.2 H (34.0-46.0) % Neutrophils # 9.6 H (1.3-7.7) k/uL Sodium 133 L (137-145) mmol/L Chloride (98-107) mmol/L Carbon Dioxide 16 L (22-30) mmol/L Creatinine 0.50 L (0.52-1.04) mg/dL Glucose 530 H* (74-99) mg/dL POC Glucose (mg/dL) (75-99) mg/dL Hemoglobin A1c (4.2-6.1) % Plasma Lactic Acid David (0.7-2.0) mmol/L Calcium (8.4-10.2) mg/dL Phosphorus (2.5-4.5) mg/dL Magnesium 1.3 L (1.6-2.3) mg/dL Total Bilirubin 1.4 H (0.2-1.3) mg/dL Total Protein (6.3-8.2) g/dL Albumin (3.5-5.0) g/dL Amylase (30-110) U/L Lipase (23-300) U/L Urine Protein 3+ H (Negative) Urine Glucose (UA) 4+ H (Negative) Urine Ketones 3+ H (Negative) Urine Blood Large H (Negative) Urine RBC >182 H (0-5) /hpf Hyaline Casts 19 H (0-2) /lpf 04/04/17 04/04/17 04/05/17 Range/Units 22:10 23:58 00:37 WBC (3.8-10.6) k/uL RBC (3.80-5.40) m/uL Hgb (11.4-16.0) gm/dL Hct (34.0-46.0) % Neutrophils # (1.3-7.7) k/uL Sodium (137-145) mmol/L Chloride (98-107) mmol/L Carbon Dioxide (22-30) mmol/L Creatinine (0.52-1.04) mg/dL Glucose (74-99) mg/dL POC Glucose (mg/dL) 442 H 398 H (75-99) mg/dL Hemoglobin A1c (4.2-6.1) % Plasma Lactic Acid David 3.3 H* (0.7-2.0) mmol/L Calcium (8.4-10.2) mg/dL Phosphorus (2.5-4.5) mg/dL Magnesium (1.6-2.3) mg/dL Total Bilirubin (0.2-1.3) mg/dL Total Protein (6.3-8.2) g/dL Albumin (3.5-5.0) g/dL Amylase (30-110) U/L Lipase (23-300) U/L Urine Protein (Negative) Urine Glucose (UA) (Negative) Urine Ketones (Negative) Urine Blood (Negative) Urine RBC (0-5) /hpf Hyaline Casts (0-2) /lpf 04/05/17 04/05/17 04/05/17 Range/Units 01:48 01:52 03:02 WBC (3.8-10.6) k/uL RBC (3.80-5.40) m/uL Hgb (11.4-16.0) gm/dL Hct (34.0-46.0) % Neutrophils # (1.3-7.7) k/uL Sodium (137-145) mmol/L Chloride (98-107) mmol/L Carbon Dioxide (22-30) mmol/L Creatinine (0.52-1.04) mg/dL Glucose (74-99) mg/dL POC Glucose (mg/dL) 343 H 297 H (75-99) mg/dL Hemoglobin A1c (4.2-6.1) % Plasma Lactic Acid David 4.5 H* (0.7-2.0) mmol/L Calcium (8.4-10.2) mg/dL Phosphorus (2.5-4.5) mg/dL Magnesium (1.6-2.3) mg/dL Total Bilirubin (0.2-1.3) mg/dL Total Protein (6.3-8.2) g/dL Albumin (3.5-5.0) g/dL Amylase (30-110) U/L Lipase (23-300) U/L Urine Protein (Negative) Urine Glucose (UA) (Negative) Urine Ketones (Negative) Urine Blood (Negative) Urine RBC (0-5) /hpf Hyaline Casts (0-2) /lpf 04/05/17 04/05/17 04/05/17 Range/Units 04:25 04:37 04:37 WBC (3.8-10.6) k/uL RBC (3.80-5.40) m/uL Hgb (11.4-16.0) gm/dL Hct (34.0-46.0) % Neutrophils # (1.3-7.7) k/uL Sodium 136 L (137-145) mmol/L Chloride 108 H (98-107) mmol/L Carbon Dioxide 18 L (22-30) mmol/L Creatinine 0.44 L (0.52-1.04) mg/dL Glucose 266 H (74-99) mg/dL POC Glucose (mg/dL) 284 H (75-99) mg/dL Hemoglobin A1c (4.2-6.1) % Plasma Lactic Acid David (0.7-2.0) mmol/L Calcium (8.4-10.2) mg/dL Phosphorus 1.2 L* (2.5-4.5) mg/dL Magnesium (1.6-2.3) mg/dL Total Bilirubin (0.2-1.3) mg/dL Total Protein (6.3-8.2) g/dL Albumin (3.5-5.0) g/dL Amylase (30-110) U/L Lipase (23-300) U/L Urine Protein (Negative) Urine Glucose (UA) (Negative) Urine Ketones (Negative) Urine Blood (Negative) Urine RBC (0-5) /hpf Hyaline Casts (0-2) /lpf 04/05/17 04/05/17 04/05/17 Range/Units 04:37 05:24 06:26 WBC (3.8-10.6) k/uL RBC (3.80-5.40) m/uL Hgb (11.4-16.0) gm/dL Hct (34.0-46.0) % Neutrophils # (1.3-7.7) k/uL Sodium (137-145) mmol/L Chloride (98-107) mmol/L Carbon Dioxide (22-30) mmol/L Creatinine (0.52-1.04) mg/dL Glucose (74-99) mg/dL POC Glucose (mg/dL) 231 H 220 H (75-99) mg/dL Hemoglobin A1c 10.4 H (4.2-6.1) % Plasma Lactic Acid David (0.7-2.0) mmol/L Calcium (8.4-10.2) mg/dL Phosphorus (2.5-4.5) mg/dL Magnesium (1.6-2.3) mg/dL Total Bilirubin (0.2-1.3) mg/dL Total Protein (6.3-8.2) g/dL Albumin (3.5-5.0) g/dL Amylase (30-110) U/L Lipase (23-300) U/L Urine Protein (Negative) Urine Glucose (UA) (Negative) Urine Ketones (Negative) Urine Blood (Negative) Urine RBC (0-5) /hpf Hyaline Casts (0-2) /lpf 04/05/17 04/05/17 04/05/17 Range/Units 07:30 08:01 08:01 WBC (3.8-10.6) k/uL RBC 5.71 H (3.80-5.40) m/uL Hgb 16.7 H (11.4-16.0) gm/dL Hct 48.4 H (34.0-46.0) % Neutrophils # (1.3-7.7) k/uL Sodium (137-145) mmol/L Chloride (98-107) mmol/L Carbon Dioxide (22-30) mmol/L Creatinine (0.52-1.04) mg/dL Glucose (74-99) mg/dL POC Glucose (mg/dL) 247 H (75-99) mg/dL Hemoglobin A1c (4.2-6.1) % Plasma Lactic Acid David 2.9 H* (0.7-2.0) mmol/L Calcium (8.4-10.2) mg/dL Phosphorus (2.5-4.5) mg/dL Magnesium (1.6-2.3) mg/dL Total Bilirubin (0.2-1.3) mg/dL Total Protein (6.3-8.2) g/dL Albumin (3.5-5.0) g/dL Amylase (30-110) U/L Lipase (23-300) U/L Urine Protein (Negative) Urine Glucose (UA) (Negative) Urine Ketones (Negative) Urine Blood (Negative) Urine RBC (0-5) /hpf Hyaline Casts (0-2) /lpf 04/05/17 04/05/17 04/05/17 Range/Units 08:06 08:09 08:09 WBC (3.8-10.6) k/uL RBC (3.80-5.40) m/uL Hgb (11.4-16.0) gm/dL Hct (34.0-46.0) % Neutrophils # (1.3-7.7) k/uL Sodium 135 L (137-145) mmol/L Chloride (98-107) mmol/L Carbon Dioxide 16 L (22-30) mmol/L Creatinine 0.40 L (0.52-1.04) mg/dL Glucose 218 H (74-99) mg/dL POC Glucose (mg/dL) 194 H (75-99) mg/dL Hemoglobin A1c (4.2-6.1) % Plasma Lactic Acid David (0.7-2.0) mmol/L Calcium 6.6 L (8.4-10.2) mg/dL Phosphorus (2.5-4.5) mg/dL Magnesium 1.5 L (1.6-2.3) mg/dL Total Bilirubin (0.2-1.3) mg/dL Total Protein 5.6 L (6.3-8.2) g/dL Albumin 2.8 L (3.5-5.0) g/dL Amylase 288 H (30-110) U/L Lipase (23-300) U/L Urine Protein (Negative) Urine Glucose (UA) (Negative) Urine Ketones (Negative) Urine Blood (Negative) Urine RBC (0-5) /hpf Hyaline Casts (0-2) /lpf 04/05/17 04/05/17 04/05/17 Range/Units 08:09 09:08 11:14 WBC (3.8-10.6) k/uL RBC (3.80-5.40) m/uL Hgb (11.4-16.0) gm/dL Hct (34.0-46.0) % Neutrophils # (1.3-7.7) k/uL Sodium (137-145) mmol/L Chloride (98-107) mmol/L Carbon Dioxide (22-30) mmol/L Creatinine (0.52-1.04) mg/dL Glucose (74-99) mg/dL POC Glucose (mg/dL) 222 H 210 H (75-99) mg/dL Hemoglobin A1c (4.2-6.1) % Plasma Lactic Acid David (0.7-2.0) mmol/L Calcium (8.4-10.2) mg/dL Phosphorus (2.5-4.5) mg/dL Magnesium (1.6-2.3) mg/dL Total Bilirubin (0.2-1.3) mg/dL Total Protein (6.3-8.2) g/dL Albumin (3.5-5.0) g/dL Amylase (30-110) U/L Lipase 3432 H (23-300) U/L Urine Protein (Negative) Urine Glucose (UA) (Negative) Urine Ketones (Negative) Urine Blood (Negative) Urine RBC (0-5) /hpf Hyaline Casts (0-2) /lpf 04/05/17 04/05/17 04/05/17 Range/Units 12:19 12:23 14:14 WBC (3.8-10.6) k/uL RBC (3.80-5.40) m/uL Hgb (11.4-16.0) gm/dL Hct (34.0-46.0) % Neutrophils # (1.3-7.7) k/uL Sodium (137-145) mmol/L Chloride (98-107) mmol/L Carbon Dioxide (22-30) mmol/L Creatinine (0.52-1.04) mg/dL Glucose (74-99) mg/dL POC Glucose (mg/dL) 245 H 222 H (75-99) mg/dL Hemoglobin A1c (4.2-6.1) % Plasma Lactic Acid David 2.6 H* (0.7-2.0) mmol/L Calcium (8.4-10.2) mg/dL Phosphorus (2.5-4.5) mg/dL Magnesium (1.6-2.3) mg/dL Total Bilirubin (0.2-1.3) mg/dL Total Protein (6.3-8.2) g/dL Albumin (3.5-5.0) g/dL Amylase (30-110) U/L Lipase (23-300) U/L Urine Protein (Negative) Urine Glucose (UA) (Negative) Urine Ketones (Negative) Urine Blood (Negative) Urine RBC (0-5) /hpf Hyaline Casts (0-2) /lpf 04/05/17 04/05/17 04/05/17 Range/Units 15:17 15:58 17:02 WBC (3.8-10.6) k/uL RBC (3.80-5.40) m/uL Hgb (11.4-16.0) gm/dL Hct (34.0-46.0) % Neutrophils # (1.3-7.7) k/uL Sodium (137-145) mmol/L Chloride (98-107) mmol/L Carbon Dioxide (22-30) mmol/L Creatinine (0.52-1.04) mg/dL Glucose (74-99) mg/dL POC Glucose (mg/dL) 193 H 191 H 210 H (75-99) mg/dL Hemoglobin A1c (4.2-6.1) % Plasma Lactic Acid David (0.7-2.0) mmol/L Calcium (8.4-10.2) mg/dL Phosphorus (2.5-4.5) mg/dL Magnesium (1.6-2.3) mg/dL Total Bilirubin (0.2-1.3) mg/dL Total Protein (6.3-8.2) g/dL Albumin (3.5-5.0) g/dL Amylase (30-110) U/L Lipase (23-300) U/L Urine Protein (Negative) Urine Glucose (UA) (Negative) Urine Ketones (Negative) Urine Blood (Negative) Urine RBC (0-5) /hpf Hyaline Casts (0-2) /lpf Microbiology - Last 24 Hours (Table) 04/04/17 21:44 Urine Culture - Preliminary Urine,Voided Diabetes panel 04/04/17 04/05/17 04/05/17 Range/Units 22:10 04:37 04:37 Sodium 133 L 136 L (137-145) mmol/L Potassium 4.8 3.7 (3.5-5.1) mmol/L Chloride 99 108 H (98-107) mmol/L Carbon Dioxide 16 L 18 L (22-30) mmol/L BUN 13 11 (7-17) mg/dL Creatinine 0.50 L 0.44 L (0.52-1.04) mg/dL Glucose 530 H* 266 H (74-99) mg/dL Hemoglobin A1c 10.4 H (4.2-6.1) % Calcium 8.7 (8.4-10.2) mg/dL AST 32 (14-36) U/L ALT 50 (9-52) U/L Alkaline Phosphatase 99 (38-126) U/L Total Protein 7.2 (6.3-8.2) g/dL Albumin 3.8 (3.5-5.0) g/dL 04/05/17 Range/Units 08:09 Sodium 135 L (137-145) mmol/L Potassium 3.7 (3.5-5.1) mmol/L Chloride 107 (98-107) mmol/L Carbon Dioxide 16 L (22-30) mmol/L BUN 11 (7-17) mg/dL Creatinine 0.40 L (0.52-1.04) mg/dL Glucose 218 H (74-99) mg/dL Hemoglobin A1c (4.2-6.1) % Calcium 6.6 L (8.4-10.2) mg/dL AST 28 (14-36) U/L ALT 35 (9-52) U/L Alkaline Phosphatase 67 (38-126) U/L Total Protein 5.6 L (6.3-8.2) g/dL Albumin 2.8 L (3.5-5.0) g/dL Calcium panel 04/04/17 04/05/17 04/05/17 Range/Units 22:10 04:37 08:09 Calcium 8.7 6.6 L (8.4-10.2) mg/dL Phosphorus 3.6 1.2 L* (2.5-4.5) mg/dL Albumin 3.8 2.8 L (3.5-5.0) g/dL Pituitary panel 04/04/17 04/05/17 04/05/17 Range/Units 22:10 04:37 08:09 Sodium 133 L 136 L 135 L (137-145) mmol/L Potassium 4.8 3.7 3.7 (3.5-5.1) mmol/L Chloride 99 108 H 107 (98-107) mmol/L Carbon Dioxide 16 L 18 L 16 L (22-30) mmol/L BUN 13 11 11 (7-17) mg/dL Creatinine 0.50 L 0.44 L 0.40 L (0.52-1.04) mg/dL Glucose 530 H* 266 H 218 H (74-99) mg/dL Calcium 8.7 6.6 L (8.4-10.2) mg/dL Adrenal panel 04/04/17 04/05/17 04/05/17 Range/Units 22:10 04:37 08:09 Sodium 133 L 136 L 135 L (137-145) mmol/L Potassium 4.8 3.7 3.7 (3.5-5.1) mmol/L Chloride 99 108 H 107 (98-107) mmol/L Carbon Dioxide 16 L 18 L 16 L (22-30) mmol/L BUN 13 11 11 (7-17) mg/dL Creatinine 0.50 L 0.44 L 0.40 L (0.52-1.04) mg/dL Glucose 530 H* 266 H 218 H (74-99) mg/dL Calcium 8.7 6.6 L (8.4-10.2) mg/dL Total Bilirubin 1.4 H 1.0 (0.2-1.3) mg/dL AST 32 28 (14-36) U/L ALT 50 35 (9-52) U/L Alkaline Phosphatase 99 67 (38-126) U/L Total Protein 7.2 5.6 L (6.3-8.2) g/dL Albumin 3.8 2.8 L (3.5-5.0) g/dL Assessment and Plan (1) Gallstone pancreatitis Narrative/Plan: Continue ice chips only for now. Continue IV hydration. Repeat lab work tomorrow. Patient will require eventual cholecystectomy but likely later during this admission or shortly after discharge. Status: Acute
[2017-04-05 17:57] LABS: Glucose,Whole Blood 197 mg/dL (75-99)
[2017-04-05 19:07] LABS: Glucose,Whole Blood 195 mg/dL (75-99)
[2017-04-05 20:12] LABS: Glucose,Whole Blood 195 mg/dL (75-99)
[2017-04-05 20:36] LABS: ALT 36 U/L (9-52); AST 27 U/L (14-36); Alkaline Phosphatase 65 U/L (38-126); Anion Gap 8 mmol/L; Blood Urea Nitrogen 8 mg/dL (7-17); Carbon Dioxide 19 mmol/L (22-30); Chloride 103 mmol/L (98-107); Glucose 195 mg/dL (74-99); Non-African American GFR(MDRD) >60 (>60 ml/min/1.73 sqM); Potassium 3.9 mmol/L (3.5-5.1); Sodium 130 mmol/L (137-145); Total Bilirubin 1.1 mg/dL (0.2-1.3); Total Protein 5.2 g/dL (6.3-8.2)
[2017-04-05 20:39] LABS: Calcium 5.7 mg/dL (8.4-10.2)
[2017-04-05 20:59] LABS: Glucose,Whole Blood 172 mg/dL (75-99)
[2017-04-05] MEDS: INSULIN GLARGINE 100 UNIT/ML 10 ML VIAL SQ SCH (21:41)
[2017-04-05] MEDS: INSULIN LISPRO (humaLOG) 300 UNIT/3 ML VIAL SQ SCH (21:44)
[2017-04-05] MEDS ORDERED: ACETAMINOPHEN IV (For NPO) 1,000 MG in EMPTY BAG 1 BAG IVPB ONE (22:17)
[2017-04-05 22:20] LABS: CH 28.8; CHCM 34.2; HCT 48.9 % (34.0-46.0); HDW 3.35; HGB 16.8 gm/dL (11.4-16.0); Immature Gran Flag Moderate; MCH 29.1 pg (25.0-35.0); MCHC 34.3 g/dL (31.0-37.0); MCV 84.9 fL (80.0-100.0); Mean Platelet Volume 6.8; RBC 5.77 m/uL (3.80-5.40); RDW 14.7 % (11.5-15.5); WBC 11.2 k/uL (3.8-10.6)
[2017-04-05 22:55] LABS: Add Differential Manual Differential
[2017-04-05 22:57] LABS: Nucleated Red Blood Cells 0 /100 WBC (0-0); Total Cells Counted 100
--- NOTE | 2017-04-05 23:38 | P.HPIM ---
History of Present Illness H&P Date: 04/05/17 Chief Complaint: Abdominal pain This is a 37-year-old female with past history of uncontrolled diabetes mellitus with his HbA1c of 10, polysubstance abuse currently on methadone 120 mg daily as per patient came to ER for evaluation of abdominal pain along with nausea and diarrhea. Patient has history of MS. Patient states family members including daughter who is also sick. Patient is complaining of diffuse generalized abdominal pain. Nausea. Vomiting. No history of similar symptoms. No history of bowel surgery. Patient had CT of the abdomen and pelvis was done in the ER showed. Pancreatic fluid and possible necrosis. Patient also had gallstones with with fat stranding. General surgery has been consulted for further evaluation. Patient is being treated for acute diabetic ketoacidosis. Patient is requesting IV pain medication. Will start on methadone after verifying with methadone clinic. Review of Systems CONSTITUTIONAL: No fever, no malaise, no fatigue. HEENT: No recent visual problems or hearing problems. Denied any sore throat. CARDIOVASCULAR: No chest pain, orthopnea, PND, no palpitations, no syncope. PULMONARY: , no hemoptysis. No cough or sputum production GASTROINTESTINAL: No diarrhea, no nausea, no vomiting, ABDOMINAL pain present. Normoactive bowel sounds. NEUROLOGICAL: No headaches, no weakness, no numbness. HEMATOLOGICAL: Denies any bleeding or petechiae. GENITOURINARY: Denies any burning micturition, frequency, or urgency. MUSCULOSKELETAL/RHEUMATOLOGICAL: Denies any joint pain, swelling, or any muscle pain. ENDOCRINE: Denies any polyuria or polydipsia. The rest of the 14-point review of systems is negative. Past Medical History Past Medical History: Asthma, Diabetes Mellitus, Hyperlipidemia, Hypertension, Liver Disease, Musculoskeletal Disorder, Neurologic Disorder, Osteoarthritis (OA ), Pneumonia, Skin Disorder, Thyroid Disorder Additional Past Medical History / Comment(s): MS, methadone treatments for chronic pain, chronic hypokalemia, heart murmur, mild left chamber enlargment of heart, psoriasis, blood and protien in urine History of Any Multi-Drug Resistant Organisms: None Reported Past Surgical History: Section Additional Past Surgical History / Comment(s): carpal tunnel right, bilateral breast reduction, c/s x2, D&C Smoking Status: Current every day smoker Medications and Allergies Home Medications Medication Instructions Recorded Confirmed Type Albuterol Sulfate [Proair Hfa] 1 - 2 puff INHALATION RT-Q6H PRN 02/22/17 History Furosemide [Lasix] 40 mg PO TID 02/22/17 04/04/17 History Potassium Chloride [Klor-Con 10] 10 meq PO BID 02/22/17 04/04/17 History ALPRAZolam [Xanax] 0.25 mg PO BID PRN 03/03/17 04/04/17 History Ergocalciferol [Vitamin D2] 50,000 unit PO MO 03/03/17 04/04/17 History Methylphenidate HCl [Ritalin] 20 mg PO TID 03/03/17 04/04/17 History Ondansetron [Zofran] 4 mg PO Q8HR PRN 03/03/17 04/04/17 History Gabapentin [Neurontin] 600 mg PO TID 04/04/17 04/04/17 History Methadone HCl [Methadone Intensol] 120 mg PO DAILY 04/04/17 04/05/17 History Allergies Allergy/AdvReac Type Severity Reaction Status Date / Time duloxetine [From Cymbalta] Allergy Severe Unknown Verified 04/04/17 22:08 pregabalin [From Lyrica] Allergy Swelling Verified 04/04/17 22:08 sertraline [From Zoloft] Allergy Swelling Verified 04/04/17 22:08 tree nut Allergy Unknown Verified 04/04/17 22:08 Physical Exam Vitals: Vital Signs Temp Pulse Pulse Resp BP BP Pulse Ox 04/05/17 18:48 99.7 F H 140/90 04/05/17 16:00 100 F H 120 H 16 145/90 95 04/05/17 14:20 120 H 18 165/94 93 L 04/05/17 12:00 24 04/05/17 09:00 120 H 24 166/100 04/05/17 08:00 120 H 24 166/100 04/05/17 07:00 98.5 F 112 H 28 H 160/89 04/05/17 06:00 120 H 16 139/88 04/05/17 05:00 114 H 19 139/88 04/05/17 04:00 99.3 F 107 H 26 H 94 L 04/05/17 03:00 111 H 21 94 L 04/05/17 02:00 105 H 19 95 04/05/17 01:00 99.3 F 95 30 H 94 L 04/05/17 00:40 157/100 96 04/05/17 00:35 99.3 F 04/05/17 00:22 100.7 F H 102 H 20 160/88 99 04/04/17 22:27 116 H 20 181/94 94 L Intake and Output 04/05/17 04/05/17 04/05/17 06:59 14:59 22:59 Intake Total 047.818 7779.638 Balance 282.736 8767.638 Intake: IV 200 1400 D5-0.45% NaCl with KCl 600 20Meq/l 1,000 ml @ 150 mls/hr IV .Q6H40M [facility] Rx# :[id number] Sodium Chloride 0.9% 1, 200 800 000 ml @ 200 mls/hr IV . Q5H [facility] Rx#:[id number] Intake, IV Titration 48.193 1851.638 Amount Insulin Regular 100 unit 48.193 100.638 In Sodium Chloride 0.9% 100 ml @ 0.1 UNITS/KG/HR 9.84 mls/hr IV .[id number] [facility] Rx#:[id number] Magnesium Sulfate-D5w Pmx 200 1 gm In Dextrose/Water 1 100ml.bag @ 100 mls/hr IVPB Q1H [facility] Rx#: [id number] Piperacillin-Tazobactam 3 551 .375 gm In Dextrose/Water 1 50ml.bag @ 12.5 mls/hr IVPB Q8HR [facility] Rx#: [id number] Potassium Phosphate 10 1000 mmol In Sodium Chloride 0 .9% 250 ml @ 126.667 mls/ hr IV Q2H [facility] Rx#: [id number] Other: Voiding Method Toilet Toilet Toilet # Voids 1 2 1 # Emeses 2 Weight 99.7 kg 99.7 kg Patient Weight 04/06/17 06:59 Weight 99.7 kg PHYSICAL EXAMINATION: Patient is lying in the bed comfortably, appears to be in mild distress, awake alert and oriented.. HEENT: Normocephalic. Neck is supple. Pupils reactive. Nostrils clear. Oral cavity is moist. Ears reveal no drainage. Neck reveals no JVD, carotid bruits, or thyromegaly. CHEST EXAMINATION: Trachea is central. Symmetrical expansion. Lung fitzgerald clear to auscultation and percussion. CARDIAC: Normal S1, S2 with no gallops. No murmurs ABDOMEN: Soft. Bowel sounds normal. Mild epigastric tenderness. No organomegaly. No abdominal bruits. Extremities reveal no edema. Neurologically awake, alert, oriented x3 with well-coordinated movements. Skin: No rash or skin lesions Results CBC & Chem 7: 04/05/17 22:02 04/05/17 20:10 Labs: Abnormal Lab Results - Last 24 Hours (Table) 04/04/17 04/04/17 04/04/17 Range/Units 21:44 22:10 22:10 WBC 11.3 H (3.8-10.6) k/uL RBC 5.88 H (3.80-5.40) m/uL Hgb 17.4 H (11.4-16.0) gm/dL Hct 50.2 H (34.0-46.0) % Neutrophils # 9.6 H (1.3-7.7) k/uL Sodium 133 L (137-145) mmol/L Chloride (98-107) mmol/L Carbon Dioxide 16 L (22-30) mmol/L Creatinine 0.50 L (0.52-1.04) mg/dL Glucose 530 H* (74-99) mg/dL POC Glucose (mg/dL) (75-99) mg/dL Hemoglobin A1c (4.2-6.1) % Plasma Lactic Acid David (0.7-2.0) mmol/L Calcium (8.4-10.2) mg/dL Phosphorus (2.5-4.5) mg/dL Magnesium 1.3 L (1.6-2.3) mg/dL Total Bilirubin 1.4 H (0.2-1.3) mg/dL Total Protein (6.3-8.2) g/dL Albumin (3.5-5.0) g/dL Amylase (30-110) U/L Lipase (23-300) U/L Urine Protein 3+ H (Negative) Urine Glucose (UA) 4+ H (Negative) Urine Ketones 3+ H (Negative) Urine Blood Large H (Negative) Urine RBC >182 H (0-5) /hpf Hyaline Casts 19 H (0-2) /lpf 04/04/17 04/04/17 04/05/17 Range/Units 22:10 23:58 00:37 WBC (3.8-10.6) k/uL RBC (3.80-5.40) m/uL Hgb (11.4-16.0) gm/dL Hct (34.0-46.0) % Neutrophils # (1.3-7.7) k/uL Sodium (137-145) mmol/L Chloride (98-107) mmol/L Carbon Dioxide (22-30) mmol/L Creatinine (0.52-1.04) mg/dL Glucose (74-99) mg/dL POC Glucose (mg/dL) 442 H 398 H (75-99) mg/dL Hemoglobin A1c (4.2-6.1) % Plasma Lactic Acid David 3.3 H* (0.7-2.0) mmol/L Calcium (8.4-10.2) mg/dL Phosphorus (2.5-4.5) mg/dL Magnesium (1.6-2.3) mg/dL Total Bilirubin (0.2-1.3) mg/dL Total Protein (6.3-8.2) g/dL Albumin (3.5-5.0) g/dL Amylase (30-110) U/L Lipase (23-300) U/L Urine Protein (Negative) Urine Glucose (UA) (Negative) Urine Ketones (Negative) Urine Blood (Negative) Urine RBC (0-5) /hpf Hyaline Casts (0-2) /lpf 04/05/17 04/05/17 04/05/17 Range/Units 01:48 01:52 03:02 WBC (3.8-10.6) k/uL RBC (3.80-5.40) m/uL Hgb (11.4-16.0) gm/dL Hct (34.0-46.0) % Neutrophils # (1.3-7.7) k/uL Sodium (137-145) mmol/L Chloride (98-107) mmol/L Carbon Dioxide (22-30) mmol/L Creatinine (0.52-1.04) mg/dL Glucose (74-99) mg/dL POC Glucose (mg/dL) 343 H 297 H (75-99) mg/dL Hemoglobin A1c (4.2-6.1) % Plasma Lactic Acid David 4.5 H* (0.7-2.0) mmol/L Calcium (8.4-10.2) mg/dL Phosphorus (2.5-4.5) mg/dL Magnesium (1.6-2.3) mg/dL Total Bilirubin (0.2-1.3) mg/dL Total Protein (6.3-8.2) g/dL Albumin (3.5-5.0) g/dL Amylase (30-110) U/L Lipase (23-300) U/L Urine Protein (Negative) Urine Glucose (UA) (Negative) Urine Ketones (Negative) Urine Blood (Negative) Urine RBC (0-5) /hpf Hyaline Casts (0-2) /lpf 04/05/17 04/05/17 04/05/17 Range/Units 04:25 04:37 04:37 WBC (3.8-10.6) k/uL RBC (3.80-5.40) m/uL Hgb (11.4-16.0) gm/dL Hct (34.0-46.0) % Neutrophils # (1.3-7.7) k/uL Sodium 136 L (137-145) mmol/L Chloride 108 H (98-107) mmol/L Carbon Dioxide 18 L (22-30) mmol/L Creatinine 0.44 L (0.52-1.04) mg/dL Glucose 266 H (74-99) mg/dL POC Glucose (mg/dL) 284 H (75-99) mg/dL Hemoglobin A1c (4.2-6.1) % Plasma Lactic Acid David (0.7-2.0) mmol/L Calcium (8.4-10.2) mg/dL Phosphorus 1.2 L* (2.5-4.5) mg/dL Magnesium (1.6-2.3) mg/dL Total Bilirubin (0.2-1.3) mg/dL Total Protein (6.3-8.2) g/dL Albumin (3.5-5.0) g/dL Amylase (30-110) U/L Lipase (23-300) U/L Urine Protein (Negative) Urine Glucose (UA) (Negative) Urine Ketones (Negative) Urine Blood (Negative) Urine RBC (0-5) /hpf Hyaline Casts (0-2) /lpf 04/05/17 04/05/17 04/05/17 Range/Units 04:37 05:24 06:26 WBC (3.8-10.6) k/uL RBC (3.80-5.40) m/uL Hgb (11.4-16.0) gm/dL Hct (34.0-46.0) % Neutrophils # (1.3-7.7) k/uL Sodium (137-145) mmol/L Chloride (98-107) mmol/L Carbon Dioxide (22-30) mmol/L Creatinine (0.52-1.04) mg/dL Glucose (74-99) mg/dL POC Glucose (mg/dL) 231 H 220 H (75-99) mg/dL Hemoglobin A1c 10.4 H (4.2-6.1) % Plasma Lactic Acid David (0.7-2.0) mmol/L Calcium (8.4-10.2) mg/dL Phosphorus (2.5-4.5) mg/dL Magnesium (1.6-2.3) mg/dL Total Bilirubin (0.2-1.3) mg/dL Total Protein (6.3-8.2) g/dL Albumin (3.5-5.0) g/dL Amylase (30-110) U/L Lipase (23-300) U/L Urine Protein (Negative) Urine Glucose (UA) (Negative) Urine Ketones (Negative) Urine Blood (Negative) Urine RBC (0-5) /hpf Hyaline Casts (0-2) /f 04/05/17 04/05/17 04/05/17 Range/Units 07:30 08:01 08:01 WBC (3.8-10.6) k/uL RBC 5.71 H (3.80-5.40) m/uL Hgb 16.7 H (11.4-16.0) gm/dL Hct 48.4 H (34.0-46.0) % Neutrophils # (1.3-7.7) k/uL Sodium (137-145) mmol/L Chloride (98-107) mmol/L Carbon Dioxide (22-30) mmol/L Creatinine (0.52-1.04) mg/dL Glucose (74-99) mg/dL POC Glucose (mg/dL) 247 H (75-99) mg/dL Hemoglobin A1c (4.2-6.1) % Plasma Lactic Acid David 2.9 H* (0.7-2.0) mmol/L Calcium (8.4-10.2) mg/dL Phosphorus (2.5-4.5) mg/dL Magnesium (1.6-2.3) mg/dL Total Bilirubin (0.2-1.3) mg/dL Total Protein (6.3-8.2) g/dL Albumin (3.5-5.0) g/dL Amylase (30-110) U/L Lipase (23-300) U/L Urine Protein (Negative) Urine Glucose (UA) (Negative) Urine Ketones (Negative) Urine Blood (Negative) Urine RBC (0-5) /hpf Hyaline Casts (0-2) /lpf 04/05/17 04/05/17 04/05/17 Range/Units 08:06 08:09 08:09 WBC (3.8-10.6) k/uL RBC (3.80-5.40) m/uL Hgb (11.4-16.0) gm/dL Hct (34.0-46.0) % Neutrophils # (1.3-7.7) k/uL Sodium 135 L (137-145) mmol/L Chloride (98-107) mmol/L Carbon Dioxide 16 L (22-30) mmol/L Creatinine 0.40 L (0.52-1.04) mg/dL Glucose 218 H (74-99) mg/dL POC Glucose (mg/dL) 194 H (75-99) mg/dL Hemoglobin A1c (4.2-6.1) % Plasma Lactic Acid David (0.7-2.0) mmol/L Calcium 6.6 L (8.4-10.2) mg/dL Phosphorus (2.5-4.5) mg/dL Magnesium 1.5 L (1.6-2.3) mg/dL Total Bilirubin (0.2-1.3) mg/dL Total Protein 5.6 L (6.3-8.2) g/dL Albumin 2.8 L (3.5-5.0) g/dL Amylase 288 H (30-110) U/L Lipase (23-300) U/L Urine Protein (Negative) Urine Glucose (UA) (Negative) Urine Ketones (Negative) Urine Blood (Negative) Urine RBC (0-5) /hpf Hyaline Casts (0-2) /lpf 04/05/17 04/05/17 04/05/17 Range/Units 08:09 09:08 11:14 WBC (3.8-10.6) k/uL RBC (3.80-5.40) m/uL Hgb (11.4-16.0) gm/dL Hct (34.0-46.0) % Neutrophils # (1.3-7.7) k/uL Sodium (137-145) mmol/L Chloride (98-107) mmol/L Carbon Dioxide (22-30) mmol/L Creatinine (0.52-1.04) mg/dL Glucose (74-99) mg/dL POC Glucose (mg/dL) 222 H 210 H (75-99) mg/dL Hemoglobin A1c (4.2-6.1) % Plasma Lactic Acid David (0.7-2.0) mmol/L Calcium (8.4-10.2) mg/dL Phosphorus (2.5-4.5) mg/dL Magnesium (1.6-2.3) mg/dL Total Bilirubin (0.2-1.3) mg/dL Total Protein (6.3-8.2) g/dL Albumin (3.5-5.0) g/dL Amylase (30-110) U/L Lipase 3432 H (23-300) U/L Urine Protein (Negative) Urine Glucose (UA) (Negative) Urine Ketones (Negative) Urine Blood (Negative) Urine RBC (0-5) /hpf Hyaline Casts (0-2) [facility] 04/05/17 04/05/17 04/05/17 Range/Units 12:19 12:23 14:14 WBC (3.8-10.6) k/uL RBC (3.80-5.40) m/uL Hgb (11.4-16.0) gm/dL Hct (34.0-46.0) % Neutrophils # (1.3-7.7) k/uL Sodium (137-145) mmol/L Chloride (98-107) mmol/L Carbon Dioxide (22-30) mmol/L Creatinine (0.52-1.04) mg/dL Glucose (74-99) mg/dL POC Glucose (mg/dL) 245 H 222 H (75-99) mg/dL Hemoglobin A1c (4.2-6.1) % Plasma Lactic Acid David 2.6 H* (0.7-2.0) mmol/L Calcium (8.4-10.2) mg/dL Phosphorus (2.5-4.5) mg/dL Magnesium (1.6-2.3) mg/dL Total Bilirubin (0.2-1.3) mg/dL Total Protein (6.3-8.2) g/dL Albumin (3.5-5.0) g/dL Amylase (30-110) U/L Lipase (23-300) U/L Urine Protein (Negative) Urine Glucose (UA) (Negative) Urine Ketones (Negative) Urine Blood (Negative) Urine RBC (0-5) /hpf Hyaline Casts (0-2) /lpf 04/05/17 04/05/17 04/05/17 Range/Units 15:17 15:58 17:02 WBC (3.8-10.6) k/uL RBC (3.80-5.40) m/uL Hgb (11.4-16.0) gm/dL Hct (34.0-46.0) % Neutrophils # (1.3-7.7) k/uL Sodium (137-145) mmol/L Chloride (98-107) mmol/L Carbon Dioxide (22-30) mmol/L Creatinine (0.52-1.04) mg/dL Glucose (74-99) mg/dL POC Glucose (mg/dL) 193 H 191 H 210 H (75-99) mg/dL Hemoglobin A1c (4.2-6.1) % Plasma Lactic Acid David (0.7-2.0) mmol/L Calcium (8.4-10.2) mg/dL Phosphorus (2.5-4.5) mg/dL Magnesium (1.6-2.3) mg/dL Total Bilirubin (0.2-1.3) mg/dL Total Protein (6.3-8.2) g/dL Albumin (3.5-5.0) g/dL Amylase (30-110) U/L Lipase (23-300) U/L Urine Protein (Negative) Urine Glucose (UA) (Negative) Urine Ketones (Negative) Urine Blood (Negative) Urine RBC (0-5) /hpf Hyaline Casts (0-2) /lpf 04/05/17 04/05/17 04/05/17 Range/Units 17:53 18:47 20:10 WBC (3.8-10.6) k/uL RBC (3.80-5.40) m/uL Hgb (11.4-16.0) gm/dL Hct (34.0-46.0) % Neutrophils # (1.3-7.7) k/uL Sodium 130 L (137-145) mmol/L Chloride (98-107) mmol/L Carbon Dioxide 19 L (22-30) mmol/L Creatinine 0.47 L (0.52-1.04) mg/dL Glucose 195 H (74-99) mg/dL POC Glucose (mg/dL) 197 H 195 H (75-99) mg/dL Hemoglobin A1c (4.2-6.1) % Plasma Lactic Acid David (0.7-2.0) mmol/L Calcium 5.7 L* (8.4-10.2) mg/dL Phosphorus (2.5-4.5) mg/dL Magnesium (1.6-2.3) mg/dL Total Bilirubin (0.2-1.3) mg/dL Total Protein 5.2 L (6.3-8.2) g/dL Albumin 2.7 L (3.5-5.0) g/dL Amylase (30-110) U/L Lipase (23-300) U/L Urine Protein (Negative) Urine Glucose (UA) (Negative) Urine Ketones (Negative) Urine Blood (Negative) Urine RBC (0-5) /hpf Hyaline Casts (0-2) /lpf 04/05/17 04/05/17 Range/Units 20:11 20:58 WBC (3.8-10.6) k/uL RBC (3.80-5.40) m/uL Hgb (11.4-16.0) gm/dL Hct (34.0-46.0) % Neutrophils # (1.3-7.7) k/uL Sodium (137-145) mmol/L Chloride (98-107) mmol/L Carbon Dioxide (22-30) mmol/L Creatinine (0.52-1.04) mg/dL Glucose (74-99) mg/dL POC Glucose (mg/dL) 195 H 172 H (75-99) mg/dL Hemoglobin A1c (4.2-6.1) % Plasma Lactic Acid David (0.7-2.0) mmol/L Calcium (8.4-10.2) mg/dL Phosphorus (2.5-4.5) mg/dL Magnesium (1.6-2.3) mg/dL Total Bilirubin (0.2-1.3) mg/dL Total Protein (6.3-8.2) g/dL Albumin (3.5-5.0) g/dL Amylase (30-110) U/L Lipase (23-300) U/L Urine Protein (Negative) Urine Glucose (UA) (Negative) Urine Ketones (Negative) Urine Blood (Negative) Urine RBC (0-5) /hpf Hyaline Casts (0-2) /lpf Microbiology - Last 24 Hours (Table) 04/04/17 21:44 Urine Culture - Preliminary Urine,Voided Thrombosis Risk Factor Assmnt - DVT/VTE Prophylaxis DVT/VTE Prophylaxis: Pharmacologic Prophylaxis ordered - Choose All That Apply Each Factor Represents 1 point: Age 41-60 years, Obesity (BMI >25) Other Risk Factors: No Thrombosis Risk Factor Assessment Total Risk Factor Score: 2 Thrombosis Risk Factor Assessment Level: Low Risk Assessment and Plan Plan: Acute diabetic ketoacidosis Uncontrolled diabetes mellitus with his HbA1c of 10 Abdominal pain due to acute pancreatitis with possible necrosis. Lipase level 3432 Acute cholecystitis with pericolic fat stranding Lactic acidosis History of multiple sclerosis Polysubstance abuse currently on methadone Chronic pain Hypertension, hyperlipidemia, hypothyroidism, osteoarthritis Plan: Patient be continued on insulin drip as per DKA protocol. We will continue the pain medications in the form of Dilaudid IV. We will verify with methadone clinic and start back on her regular dose of 120 mg daily. DVT prophylaxis. General surgery is on board. We will repeat labs in a.m. Continue with IV hydration. Continue with nothing by mouth Time with Patient: Greater than 30
[2017-04-06] MEDS: D5-0.45% NACL WITH KCL 20MEQ/L 1,000 ML IV SCH ×2 (00:01→07:51)
[2017-04-06 02:10] LABS: Glucose,Whole Blood 268 mg/dL (75-99)
[2017-04-06] MEDS: HYDROmorphone 1 MG/ML 1 ML SYRINGE IVP PRN ×4 (04:42→21:54)
[2017-04-06 05:56] LABS: Glucose,Whole Blood 285 mg/dL (75-99)
[2017-04-06] MEDS: INSULIN LISPRO (humaLOG) 300 UNIT/3 ML VIAL SQ SCH ×7 (07:10→21:38)
[2017-04-06 07:25] LABS: Magnesium 1.9 mg/dL (1.6-2.3); Phosphorous 1.9 mg/dL (2.5-4.5)
[2017-04-06] MEDS: INSULIN REGULAR 100 UNIT in SODIUM CHLORIDE 0.9% 100 ML IV SCH (07:49)
[2017-04-06] MEDS: GABAPENTIN 300 MG CAP PO SCH ×3 (08:31→21:37)
[2017-04-06] MEDS: METHADONE 10 MG TAB PO SCH (08:31)
[2017-04-06] MEDS: PIPERACILLIN-TAZOBACTAM 3.375 GM in DEXTROSE/WATER 1 50ML.BAG IVPB SCH ×2 (09:05→16:23)
[2017-04-06] MEDS: ONDANSETRON 4 MG/2 ML VIAL IVP PRN (09:06)
[2017-04-06] MEDS: ACETAMINOPHEN IV (For NPO) 1,000 MG in EMPTY BAG 1 BAG IVPB PRN ×2 (10:08→16:47)
[2017-04-06 11:33] LABS: Basophils # (A) 0.1 k/uL (0-0.2); Basophils % (A) 1 %; CH 29.7; CHCM 34.3; Eosinophils # (A) 0.1 k/uL (0-0.7); Eosinophils % (A) 1 %; HCT 45.3 % (34.0-46.0); HDW 3.29; HGB 14.8 gm/dL (11.4-16.0); Luc # (Auto) 0.14; Luc % (Auto) 1; Lymphocytes # (A) 1.9 k/uL (1.0-4.8); Lymphocytes % (A) 17 %; MCH 28.5 pg (25.0-35.0); MCHC 32.7 g/dL (31.0-37.0); MCV 87.2 fL (80.0-100.0); Monocytes # (A) 0.2 k/uL (0-1.0); Monocytes % (A) 2 %; Neutrophils # (A) 8.7 k/uL (1.3-7.7); Neutrophils % (A) 79 %; RBC 5.19 m/uL (3.80-5.40); RDW 15.7 % (11.5-15.5); WBC 11.1 k/uL (3.8-10.6); WBC (Perox) 11.43
[2017-04-06 11:51] LABS: ALT 33 U/L (9-52); AST 26 U/L (14-36); Alkaline Phosphatase 68 U/L (38-126); Anion Gap 8 mmol/L; Blood Urea Nitrogen 11 mg/dL (7-17); Carbon Dioxide 19 mmol/L (22-30); Chloride 101 mmol/L (98-107); Glucose 302 mg/dL (74-99); Non-African American GFR(MDRD) >60 (>60 ml/min/1.73 sqM); Potassium 4.2 mmol/L (3.5-5.1); Sodium 128 mmol/L (137-145); Total Protein 5.1 g/dL (6.3-8.2)
--- NOTE | 2017-04-06 11:55 | P.PN ---
Subjective Principal diagnosis: Severe acute pancreatitis Patient continued to have fevers last night as high as 102.1. Heart rate in the 110 to 1:30 range. Morning labs are pending however lactic acid has normalized. He says her pain is improved. She appears much more comfortable and in less distress. Objective - Vital Signs Vital signs: Vital Signs Temp 102 F H 04/06/17 11:15 Pulse 112 H 04/06/17 11:15 Resp 18 04/06/17 11:35 BP 137/90 04/06/17 11:15 Pulse Ox 94 L 04/06/17 11:15 Intake & Output 04/05/17 04/06/17 04/06/17 18:59 06:59 18:59 Intake Total 3251.638 700 Output Total 600 Balance 3251.638 100 Weight 99.7 kg 105.2 kg Intake: IV 1400 300 D5-0.45% NaCl with KCl 600 300 20Meq/l 1,000 ml @ 150 mls/hr IV .Q6H40M [facility] Rx# :[id number] Sodium Chloride 0.9% 1, 800 000 ml @ 200 mls/hr IV . Q5H [facility] Rx#:[id number] Intake, IV Titration 1851.638 400 Amount ACETAMINOPHEN IV (For NPO 400 ) 1,000 mg In Empty Bag 1 bag @ 400 mls/hr IVPB ONCE ONE Rx#:[id number] Insulin Regular 100 unit 100.638 In Sodium Chloride 0.9% 100 ml @ 0.1 UNITS/KG/HR 9.84 mls/hr IV .[id number] [facility] Rx#:[id number] Magnesium Sulfate-D5w Pmx 200 1 gm In Dextrose/Water 1 100ml.bag @ 100 mls/hr IVPB Q1H [facility] Rx#: [id number] Piperacillin-Tazobactam 3 551 .375 gm In Dextrose/Water 1 50ml.bag @ 12.5 mls/hr IVPB Q8HR [facility] Rx#: [id number] Potassium Phosphate 10 1000 mmol In Sodium Chloride 0 .9% 250 ml @ 126.667 mls/ hr IV Q2H [facility] Rx#: [id number] Output: Urine 600 Other: Voiding Method Toilet Bedside Commode Bedside Commode # Voids 1 - Exam Abdomen: Soft, mild distention, mild epigastric tenderness - Labs CBC & Chem 7: 04/06/17 11:18 04/05/17 20:10 Labs: Abnormal Lab Results - Last 24 Hours (Table) 04/05/17 04/05/17 04/05/17 Range/Units 04:37 12:19 12:23 WBC (3.8-10.6) k/uL RBC (3.80-5.40) m/uL Hgb (11.4-16.0) gm/dL Hct (34.0-46.0) % RDW (11.5-15.5) % Neutrophils # (1.3-7.7) k/uL Neutrophils # (Manual) (1.3-7.7) k/uL Sodium (137-145) mmol/L Carbon Dioxide (22-30) mmol/L Creatinine (0.52-1.04) mg/dL Glucose (74-99) mg/dL POC Glucose (mg/dL) 245 H (75-99) mg/dL Hemoglobin A1c 10.4 H (4.2-6.1) % Plasma Lactic Acid David 2.6 H* (0.7-2.0) mmol/L Calcium (8.4-10.2) mg/dL Phosphorus (2.5-4.5) mg/dL Total Protein (6.3-8.2) g/dL Albumin (3.5-5.0) g/dL 04/05/17 04/05/17 04/05/17 Range/Units 14:14 15:17 15:58 WBC (3.8-10.6) k/uL RBC (3.80-5.40) m/uL Hgb (11.4-16.0) gm/dL Hct (34.0-46.0) % RDW (11.5-15.5) % Neutrophils # (1.3-7.7) k/uL Neutrophils # (Manual) (1.3-7.7) k/uL Sodium (137-145) mmol/L Carbon Dioxide (22-30) mmol/L Creatinine (0.52-1.04) mg/dL Glucose (74-99) mg/dL POC Glucose (mg/dL) 222 H 193 H 191 H (75-99) mg/dL Hemoglobin A1c (4.2-6.1) % Plasma Lactic Acid David (0.7-2.0) mmol/L Calcium (8.4-10.2) mg/dL Phosphorus (2.5-4.5) mg/dL Total Protein (6.3-8.2) g/dL Albumin (3.5-5.0) g/dL 04/05/17 04/05/17 04/05/17 Range/Units 17:02 17:53 18:47 WBC (3.8-10.6) k/uL RBC (3.80-5.40) m/uL Hgb (11.4-16.0) gm/dL Hct (34.0-46.0) % RDW (11.5-15.5) % Neutrophils # (1.3-7.7) k/uL Neutrophils # (Manual) (1.3-7.7) k/uL Sodium (137-145) mmol/L Carbon Dioxide (22-30) mmol/L Creatinine (0.52-1.04) mg/dL Glucose (74-99) mg/dL POC Glucose (mg/dL) 210 H 197 H 195 H (75-99) mg/dL Hemoglobin A1c (4.2-6.1) % Plasma Lactic Acid David (0.7-2.0) mmol/L Calcium (8.4-10.2) mg/dL Phosphorus (2.5-4.5) mg/dL Total Protein (6.3-8.2) g/dL Albumin (3.5-5.0) g/dL 04/05/17 04/05/17 04/05/17 Range/Units 20:10 20:11 20:58 WBC (3.8-10.6) k/uL RBC (3.80-5.40) m/uL Hgb (11.4-16.0) gm/dL Hct (34.0-46.0) % RDW (11.5-15.5) % Neutrophils # (1.3-7.7) k/uL Neutrophils # (Manual) (1.3-7.7) k/uL Sodium 130 L (137-145) mmol/L Carbon Dioxide 19 L (22-30) mmol/L Creatinine 0.47 L (0.52-1.04) mg/dL Glucose 195 H (74-99) mg/dL POC Glucose (mg/dL) 195 H 172 H (75-99) mg/dL Hemoglobin A1c (4.2-6.1) % Plasma Lactic Acid David (0.7-2.0) mmol/L Calcium 5.7 L* (8.4-10.2) mg/dL Phosphorus (2.5-4.5) mg/dL Total Protein 5.2 L (6.3-8.2) g/dL Albumin 2.7 L (3.5-5.0) g/dL 04/05/17 04/06/17 04/06/17 Range/Units 22:02 02:07 05:54 WBC 11.2 H (3.8-10.6) k/uL RBC 5.77 H (3.80-5.40) m/uL Hgb 16.8 H (11.4-16.0) gm/dL Hct 48.9 H (34.0-46.0) % RDW (11.5-15.5) % Neutrophils # (1.3-7.7) k/uL Neutrophils # (Manual) 8.28 H (1.3-7.7) k/uL Sodium (137-145) mmol/L Carbon Dioxide (22-30) mmol/L Creatinine (0.52-1.04) mg/dL Glucose (74-99) mg/dL POC Glucose (mg/dL) 268 H 285 H (75-99) mg/dL Hemoglobin A1c (4.2-6.1) % Plasma Lactic Acid David (0.7-2.0) mmol/L Calcium (8.4-10.2) mg/dL Phosphorus (2.5-4.5) mg/dL Total Protein (6.3-8.2) g/dL Albumin (3.5-5.0) g/dL 04/06/17 04/06/17 Range/Units 06:10 11:18 WBC 11.1 H (3.8-10.6) k/uL RBC (3.80-5.40) m/uL Hgb (11.4-16.0) gm/dL Hct (34.0-46.0) % RDW 15.7 H (11.5-15.5) % Neutrophils # 8.7 H (1.3-7.7) k/uL Neutrophils # (Manual) (1.3-7.7) k/uL Sodium (137-145) mmol/L Carbon Dioxide (22-30) mmol/L Creatinine (0.52-1.04) mg/dL Glucose (74-99) mg/dL POC Glucose (mg/dL) (75-99) mg/dL Hemoglobin A1c (4.2-6.1) % Plasma Lactic Acid David (0.7-2.0) mmol/L Calcium (8.4-10.2) mg/dL Phosphorus 1.9 L (2.5-4.5) mg/dL Total Protein (6.3-8.2) g/dL Albumin (3.5-5.0) g/dL Microbiology - Last 24 Hours (Table) 04/04/17 21:44 Urine Culture - Preliminary Urine,Voided Assessment and Plan (1) Gallstone pancreatitis Narrative/Plan: Severe acute pancreatitis with possible focal area of necrosis. We will reevaluate the patient tomorrow and consider repeating CAT scan pancreas at that time depending on the patient's progress. Await morning labs. Sips of water only for now. Status: Acute
[2017-04-06 11:57] LABS: Calcium 5.7 mg/dL (8.4-10.2)
[2017-04-06] MEDS: LACTATED RINGERS 1,000 ML IV SCH (12:00)
[2017-04-06 12:06] LABS: Glucose,Whole Blood 276 mg/dL (75-99)
[2017-04-06 12:38] LABS: C Reactive Protein 250.5 mg/L (<10.0)
[2017-04-06 13:44] LABS: Hemoglobin A1C 10.2 % (4.2-6.1)
[2017-04-06 18:01] LABS: Glucose,Whole Blood 223 mg/dL (75-99)
[2017-04-06 21:06] LABS: Glucose,Whole Blood 202 mg/dL (75-99)
[2017-04-06] MEDS: INSULIN GLARGINE 100 UNIT/ML 10 ML VIAL SQ SCH (21:37)
[2017-04-06] MEDS: LORazepam 2 MG/ML SYRINGE IV PRN (21:53)
--- NOTE | 2017-04-06 23:32 | P.PN ---
Subjective Principal diagnosis: DKA and acute pancreatitis This is a 37-year-old female with past history of uncontrolled diabetes mellitus with his HbA1c of 10, polysubstance abuse currently on methadone 120 mg daily as per patient came to ER for evaluation of abdominal pain along with nausea and diarrhea. Patient has history of MS. Patient states family members including daughter who is also sick. Patient is complaining of diffuse generalized abdominal pain. Nausea. Vomiting. No history of similar symptoms. No history of bowel surgery. Patient had CT of the abdomen and pelvis was done in the ER showed. Pancreatic fluid and possible necrosis. Patient also had gallstones with with fat stranding. General surgery has been consulted for further evaluation. Patient is being treated for acute diabetic ketoacidosis. Patient is requesting IV pain medication. Will start on methadone after verifying with methadone clinic. 04/06/2017 Patient says that her abdominal pain is better today. Patient current is to be febrile T-max of 101 today. Her calcium level is 5.7 and albumin 2.5 General surgery is following this patient and is planning for repeat CT abdomen. Objective - Vital Signs Vital signs: Vital Signs Temp 99.4 F 04/06/17 19:54 Pulse 96 04/06/17 19:54 Resp 18 04/06/17 19:54 BP 118/66 04/06/17 19:54 Pulse Ox 100 04/06/17 19:54 Intake & Output 04/06/17 04/06/17 04/07/17 06:59 18:59 06:59 Intake Total 700 1300 Output Total 600 400 Balance 100 900 Weight 105.2 kg Intake: IV 300 1200 D5-0.45% NaCl with KCl 300 600 20Meq/l 1,000 ml @ 150 mls/hr IV .Q6H40M [facility] Rx# :[id number] Lactated Ringers 1,000 ml 600 @ 150 mls/hr IV .Q6H40M [facility] Rx#:[id number] Intake, IV Titration 400 100 Amount ACETAMINOPHEN IV (For NPO 400 ) 1,000 mg In Empty Bag 1 bag @ 400 mls/hr IVPB ONCE ONE Rx#:[id number] Piperacillin-Tazobactam 3 100 .375 gm In Dextrose/Water 1 50ml.bag @ 12.5 mls/hr IVPB Q8HR [facility] Rx#: [id number] Output: Urine 600 400 Other: Voiding Method Bedside Commode Bedside Commode Bedside Commode - Exam PHYSICAL EXAMINATION: Patient is lying in the bed comfortably, no acute distress, awake alert and oriented.. HEENT: Normocephalic. Neck is supple. Pupils reactive. Nostrils clear. Oral cavity is moist. Ears reveal no drainage. Neck reveals no JVD, carotid bruits, or thyromegaly. CHEST EXAMINATION: Trachea is central. Symmetrical expansion. Lung fitzgerald clear to auscultation and percussion. CARDIAC: Normal S1, S2 with no gallops. No murmurs ABDOMEN: Soft. Bowel sounds normal. Mild abdominal tenderness and no guarding no rigidity. No organomegaly. No abdominal bruits. Extremities reveal no edema. No clubbing or cyanosis Neurologically awake, alert, oriented x3 with well-coordinated movements. Skin: no rash or skin lesions Musculoskeletal: no joint swelling or deformity. - Labs CBC & Chem 7: 04/06/17 11:18 04/06/17 11:18 Labs: Abnormal Lab Results - Last 24 Hours (Table) 04/05/17 04/06/17 04/06/17 Range/Units 22:02 02:07 05:54 WBC 11.2 H (3.8-10.6) k/uL RBC 5.77 H (3.80-5.40) m/uL Hgb 16.8 H (11.4-16.0) gm/dL Hct 48.9 H (34.0-46.0) % RDW (11.5-15.5) % Neutrophils # (1.3-7.7) k/uL Neutrophils # (Manual) 8.28 H (1.3-7.7) k/uL Sodium (137-145) mmol/L Carbon Dioxide (22-30) mmol/L Creatinine (0.52-1.04) mg/dL Glucose (74-99) mg/dL POC Glucose (mg/dL) 268 H 285 H (75-99) mg/dL Hemoglobin A1c (4.2-6.1) % Calcium (8.4-10.2) mg/dL Phosphorus (2.5-4.5) mg/dL C-Reactive Protein (<10.0) mg/L Total Protein (6.3-8.2) g/dL Albumin (3.5-5.0) g/dL 04/06/17 04/06/17 04/06/17 Range/Units 06:10 06:10 11:18 WBC 11.1 H (3.8-10.6) k/uL RBC (3.80-5.40) m/uL Hgb (11.4-16.0) gm/dL Hct (34.0-46.0) % RDW 15.7 H (11.5-15.5) % Neutrophils # 8.7 H (1.3-7.7) k/uL Neutrophils # (Manual) (1.3-7.7) k/uL Sodium (137-145) mmol/L Carbon Dioxide (22-30) mmol/L Creatinine (0.52-1.04) mg/dL Glucose (74-99) mg/dL POC Glucose (mg/dL) (75-99) mg/dL Hemoglobin A1c 10.2 H (4.2-6.1) % Calcium (8.4-10.2) mg/dL Phosphorus 1.9 L (2.5-4.5) mg/dL C-Reactive Protein (<10.0) mg/L Total Protein (6.3-8.2) g/dL Albumin (3.5-5.0) g/dL 04/06/17 04/06/17 04/06/17 Range/Units 11:18 11:51 17:59 WBC (3.8-10.6) k/uL RBC (3.80-5.40) m/uL Hgb (11.4-16.0) gm/dL Hct (34.0-46.0) % RDW (11.5-15.5) % Neutrophils # (1.3-7.7) k/uL Neutrophils # (Manual) (1.3-7.7) k/uL Sodium 128 L (137-145) mmol/L Carbon Dioxide 19 L (22-30) mmol/L Creatinine 0.50 L (0.52-1.04) mg/dL Glucose 302 H (74-99) mg/dL POC Glucose (mg/dL) 276 H 223 H (75-99) mg/dL Hemoglobin A1c (4.2-6.1) % Calcium 5.7 L* (8.4-10.2) mg/dL Phosphorus (2.5-4.5) mg/dL C-Reactive Protein 250.5 H (<10.0) mg/L Total Protein 5.1 L (6.3-8.2) g/dL Albumin 2.5 L (3.5-5.0) g/dL 04/06/17 Range/Units 21:05 WBC (3.8-10.6) k/uL RBC (3.80-5.40) m/uL Hgb (11.4-16.0) gm/dL Hct (34.0-46.0) % RDW (11.5-15.5) % Neutrophils # (1.3-7.7) k/uL Neutrophils # (Manual) (1.3-7.7) k/uL Sodium (137-145) mmol/L Carbon Dioxide (22-30) mmol/L Creatinine (0.52-1.04) mg/dL Glucose (74-99) mg/dL POC Glucose (mg/dL) 202 H (75-99) mg/dL Hemoglobin A1c (4.2-6.1) % Calcium (8.4-10.2) mg/dL Phosphorus (2.5-4.5) mg/dL C-Reactive Protein (<10.0) mg/L Total Protein (6.3-8.2) g/dL Albumin (3.5-5.0) g/dL Microbiology - Last 24 Hours (Table) 04/04/17 21:44 Urine Culture - Final Urine,Voided Assessment and Plan Plan: Fever Acute diabetic ketoacidosis. Resolved Uncontrolled diabetes mellitus with his HbA1c of 10.2 Abdominal pain due to acute pancreatitis with possible necrosis. Lipase level was 3432. Pain improved. Acute cholecystitis with pericolic fat stranding Lactic acidosis. Resolved History of multiple sclerosis Polysubstance abuse currently on methadone Chronic pain Hypertension, hyperlipidemia, hypothyroidism, osteoarthritis Plan: Patient be continued on insulin dose for diabetes and continue the pain management with Dilaudid and methadone on 120 mg daily. Continue with DVT prophylaxis. General surgery is on board. Planning for repeat computed tomography scan if the patient is continues to be febrile. We will repeat labs in a.m. Continue with IV hydration. She is tolerating liquids. Time with Patient: Greater than 30
[2017-04-07] MEDS: PIPERACILLIN-TAZOBACTAM 3.375 GM in DEXTROSE/WATER 1 50ML.BAG IVPB SCH ×4 (00:15→23:55)
[2017-04-07] MEDS: SODIUM CHLORIDE 0.9% 1,000 ML IV SCH ×3 (02:00→18:58)
[2017-04-07] MEDS: LACTATED RINGERS 1,000 ML IV SCH ×5 (02:00→22:23)
[2017-04-07] MEDS: HYDROmorphone 1 MG/ML 1 ML SYRINGE IVP PRN ×6 (02:01→22:23)
[2017-04-07 06:24] LABS: Glucose,Whole Blood 187 mg/dL (75-99)
[2017-04-07 06:27] LABS: Basophils % (A) 0 %; CH 29.7; CHCM 34.4; Eosinophils # (A) 0.2 k/uL (0-0.7); Eosinophils % (A) 3 %; HCT 36.8 % (34.0-46.0); HDW 3.29; HGB 12.2 gm/dL (11.4-16.0); Luc # (Auto) 0.07; Luc % (Auto) 1; Lymphocytes # (A) 1.1 k/uL (1.0-4.8); Lymphocytes % (A) 12 %; MCH 28.9 pg (25.0-35.0); MCHC 33.3 g/dL (31.0-37.0); Mean Platelet Volume 8.7; Monocytes # (A) 0.2 k/uL (0-1.0); Monocytes % (A) 2 %; Neutrophils # (A) 7.7 k/uL (1.3-7.7); Neutrophils % (A) 82 %; RBC 4.23 m/uL (3.80-5.40); RDW 15.2 % (11.5-15.5); WBC 9.3 k/uL (3.8-10.6); WBC (Perox) 10.06
[2017-04-07] MEDS: INSULIN LISPRO (humaLOG) 300 UNIT/3 ML VIAL SQ SCH ×7 (06:42→21:04)
[2017-04-07 06:50] LABS: ALT 26 U/L (9-52); AST 25 U/L (14-36); Alkaline Phosphatase 73 U/L (38-126); Anion Gap 8 mmol/L; Blood Urea Nitrogen 6 mg/dL (7-17); Carbon Dioxide 25 mmol/L (22-30); Chloride 98 mmol/L (98-107); Glucose 190 mg/dL (74-99); Non-African American GFR(MDRD) >60 (>60 ml/min/1.73 sqM); Potassium 3.4 mmol/L (3.5-5.1); Sodium 131 mmol/L (137-145); Total Bilirubin 0.8 mg/dL (0.2-1.3); Total Protein 4.8 g/dL (6.3-8.2)
[2017-04-07] MEDS: LORazepam 2 MG/ML SYRINGE IV PRN ×3 (06:53→23:52)
[2017-04-07 07:10] LABS: Calcium 6.1 mg/dL (8.4-10.2)
[2017-04-07] MEDS: GABAPENTIN 300 MG CAP PO SCH ×3 (08:57→21:03)
[2017-04-07] MEDS: METHADONE 10 MG TAB PO SCH (08:57)
[2017-04-07 10:39] LABS: Amylase 85 U/L (30-110)
[2017-04-07 11:27] LABS: Glucose,Whole Blood 156 mg/dL (75-99)
[2017-04-07 16:59] LABS: Glucose,Whole Blood 126 mg/dL (75-99)
[2017-04-07] MEDS ORDERED: IOHEXOL 350 MG/ML 25 ML BOTTLE (ORAL USE) PO PRN (18:42)
[2017-04-07] MEDS ORDERED: RX INFO: IV CONTRAST WAS GIVEN 1 EACH MISC MISCELLANE PRN (18:42)
[2017-04-07] MEDS ORDERED: CALCIUM GLUCONATE 1,000 MG in SODIUM CHLORIDE 0.9% 100 ML IVPB ONE (18:43)
--- NOTE | 2017-04-07 18:45 | P.PN ---
Subjective Principal diagnosis: Severe acute pancreatitis Patient says her pain is somewhat worse today. Pain is in the upper abdomen radiating to the back. No nausea or vomiting. She is tolerating her liquids. She is actually asking for more to eat. Her CRP was quite elevated at 250. Her calcium has been low in the last several days. White blood cell count normal. Fevers and tachycardia seem to have resolved. Objective - Vital Signs Vital signs: Vital Signs Temp 98.4 F 04/07/17 16:00 Pulse 83 04/07/17 16:00 Resp 20 04/07/17 16:00 BP 153/72 04/07/17 16:00 Pulse Ox 97 04/07/17 16:00 Intake & Output 04/06/17 04/07/17 04/07/17 18:59 06:59 18:59 Intake Total 1300 Output Total 400 400 Balance 900 -400 Weight 106.8 kg 106.8 kg Intake: IV 1200 D5-0.45% NaCl with KCl 600 20Meq/l 1,000 ml @ 150 mls/hr IV .Q6H40M [facility] Rx# :[id number] Lactated Ringers 1,000 ml 600 @ 150 mls/hr IV .Q6H40M [facility] Rx#:[id number] Intake, IV Titration 100 Amount Piperacillin-Tazobactam 3 100 .375 gm In Dextrose/Water 1 50ml.bag @ 12.5 mls/hr IVPB Q8HR [facility] Rx#: [id number] Output: Urine 400 400 Other: Voiding Method Bedside Commode Bedside Commode Bedside Commode - Exam Abdomen: Soft, mild distention, mild epigastric tenderness - Labs CBC & Chem 7: 04/07/17 06:12 04/07/17 06:12 Labs: Abnormal Lab Results - Last 24 Hours (Table) 04/06/17 04/07/17 04/07/17 Range/Units 21:05 06:11 06:12 Sodium 131 L (137-145) mmol/L Potassium 3.4 L (3.5-5.1) mmol/L BUN 6 L (7-17) mg/dL Creatinine 0.43 L (0.52-1.04) mg/dL Glucose 190 H (74-99) mg/dL POC Glucose (mg/dL) 202 H 187 H (75-99) mg/dL Calcium 6.1 L* (8.4-10.2) mg/dL Total Protein 4.8 L (6.3-8.2) g/dL Albumin 2.5 L (3.5-5.0) g/dL Lipase (23-300) U/L 04/07/17 04/07/17 04/07/17 Range/Units 06:12 11:26 16:47 Sodium (137-145) mmol/L Potassium (3.5-5.1) mmol/L BUN (7-17) mg/dL Creatinine (0.52-1.04) mg/dL Glucose (74-99) mg/dL POC Glucose (mg/dL) 156 H 126 H (75-99) mg/dL Calcium (8.4-10.2) mg/dL Total Protein (6.3-8.2) g/dL Albumin (3.5-5.0) g/dL Lipase 533 H (23-300) U/L Microbiology - Last 24 Hours (Table) 04/05/17 21:56 Blood Culture - Preliminary Blood No Growth after 24 hours Assessment and Plan (1) Gallstone pancreatitis Narrative/Plan: Will check follow-up CAT scan with IV contrast using a pancreatic protocol to evaluate the degree of pancreatic necrosis if present. Continue sips of water only for now. Continue antibiotics. Supplement calcium level. Will follow. Status: Acute
[2017-04-07 20:53] LABS: Glucose,Whole Blood 134 mg/dL (75-99)
[2017-04-07] MEDS: INSULIN GLARGINE 100 UNIT/ML 10 ML VIAL SQ SCH (21:03)
--- NOTE | 2017-04-08 01:13 | P.PN ---
Subjective Principal diagnosis: DKA and acute pancreatitis This is a 37-year-old female with past history of uncontrolled diabetes mellitus with his HbA1c of 10, polysubstance abuse currently on methadone 120 mg daily as per patient came to ER for evaluation of abdominal pain along with nausea and diarrhea. Patient has history of MS. Patient states family members including daughter who is also sick. Patient is complaining of diffuse generalized abdominal pain. Nausea. Vomiting. No history of similar symptoms. No history of bowel surgery. Patient had CT of the abdomen and pelvis was done in the ER showed. Pancreatic fluid and possible necrosis. Patient also had gallstones with with fat stranding. General surgery has been consulted for further evaluation. Patient is being treated for acute diabetic ketoacidosis. Patient is requesting IV pain medication. Will start on methadone after verifying with methadone clinic. 04/06/2017 Patient says that her abdominal pain is better today. Patient current is to be febrile T-max of 101 today. Her calcium level is 5.7 and albumin 2.5 General surgery is following this patient and is planning for repeat CT abdomen. 04/07/2017 Patient is still having diffuse abdominal pain. No fever no chills. Lipase level trending down to 500 today. Patient is still requesting IV pain medications. Calcium level improved to 6.1. Patient has been afebrile today. Repeat CT abdomen was ordered to LAD progress of pancreatic necrosis. Objective - Vital Signs Vital signs: Vital Signs Temp 99.1 F 04/07/17 20:00 Pulse 90 04/07/17 20:00 Resp 18 04/07/17 20:00 BP 144/69 04/07/17 20:00 Pulse Ox 95 04/07/17 20:00 Intake & Output 04/07/17 04/07/17 04/08/17 06:59 18:59 06:59 Output Total 400 Balance -400 Weight 106.8 kg 106.8 kg Output: Urine 400 Other: Voiding Method Bedside Commode Bedside Commode Bedside Commode - Exam PHYSICAL EXAMINATION: Patient is lying in the bed comfortably, no acute distress, awake alert and oriented.. Patient is anxious HEENT: Normocephalic. Neck is supple. Pupils reactive. Nostrils clear. Oral cavity is moist. Ears reveal no drainage. Neck reveals no JVD, carotid bruits, or thyromegaly. CHEST EXAMINATION: Trachea is central. Symmetrical expansion. Lung fitzgerald clear to auscultation and percussion. CARDIAC: Normal S1, S2 with no gallops. No murmurs ABDOMEN: Soft. Bowel sounds normal. Mild to moderate abdominal tenderness and no guarding no rigidity. No organomegaly. No abdominal bruits. Extremities reveal no edema. No clubbing or cyanosis Neurologically awake, alert, oriented x3 with well-coordinated movements. Skin: no rash or skin lesions Musculoskeletal: no joint swelling or deformity. - Labs CBC & Chem 7: 04/07/17 06:12 04/07/17 06:12 Labs: Abnormal Lab Results - Last 24 Hours (Table) 04/07/17 04/07/17 04/07/17 Range/Units 06:11 06:12 06:12 Sodium 131 L (137-145) mmol/L Potassium 3.4 L (3.5-5.1) mmol/L BUN 6 L (7-17) mg/dL Creatinine 0.43 L (0.52-1.04) mg/dL Glucose 190 H (74-99) mg/dL POC Glucose (mg/dL) 187 H (75-99) mg/dL Calcium 6.1 L* (8.4-10.2) mg/dL Total Protein 4.8 L (6.3-8.2) g/dL Albumin 2.5 L (3.5-5.0) g/dL Lipase 533 H (23-300) U/L 04/07/17 04/07/17 04/07/17 Range/Units 11:26 16:47 20:41 Sodium (137-145) mmol/L Potassium (3.5-5.1) mmol/L BUN (7-17) mg/dL Creatinine (0.52-1.04) mg/dL Glucose (74-99) mg/dL POC Glucose (mg/dL) 156 H 126 H 134 H (75-99) mg/dL Calcium (8.4-10.2) mg/dL Total Protein (6.3-8.2) g/dL Albumin (3.5-5.0) g/dL Lipase (23-300) U/L Microbiology - Last 24 Hours (Table) 04/05/17 21:56 Blood Culture - Preliminary Blood No Growth after 24 hours Assessment and Plan Plan: Fever Acute diabetic ketoacidosis. 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 Lipase level was 3432. Improved to 532. Pain improved. Acute cholecystitis with pericolic fat stranding Lactic acidosis. Resolved History of multiple sclerosis Polysubstance abuse currently on methadone Chronic pain Hypertension, hyperlipidemia, hypothyroidism, osteoarthritis Plan: Patient be continued on insulin dose for diabetes and continue the pain management with Dilaudid and methadone on 120 mg daily. Continue with DVT prophylaxis. General surgery is on board. Repeat CT abdomen was ordered. Continue with IV hydration. She is tolerating liquids.
[2017-04-08] MEDS: HYDROmorphone 1 MG/ML 1 ML SYRINGE IVP PRN ×6 (01:47→21:14)
[2017-04-08] MEDS ORDERED: HALOPERIDOL LACTATE 5 MG/ML 1 ML VIAL IM STA (03:30)
[2017-04-08] MEDS: LACTATED RINGERS 1,000 ML IV SCH ×3 (03:52→16:17)
[2017-04-08] MEDS: SODIUM CHLORIDE 0.9% 1,000 ML IV SCH ×2 (03:52→13:16)
[2017-04-08 06:12] LABS: Basophils % (A) 0 %; CH 29.9; CHCM 34.7; Eosinophils # (A) 0.3 k/uL (0-0.7); Eosinophils % (A) 3 %; HCT 36.5 % (34.0-46.0); HDW 3.31; HGB 12.2 gm/dL (11.4-16.0); Luc # (Auto) 0.13; Luc % (Auto) 1; Lymphocytes # (A) 1.5 k/uL (1.0-4.8); Lymphocytes % (A) 14 %; MCH 28.9 pg (25.0-35.0); MCHC 33.3 g/dL (31.0-37.0); MCV 86.8 fL (80.0-100.0); Mean Platelet Volume 7.6; Monocytes # (A) 0.4 k/uL (0-1.0); Monocytes % (A) 3 %; Neutrophils # (A) 8.2 k/uL (1.3-7.7); Neutrophils % (A) 78 %; RBC 4.21 m/uL (3.80-5.40); RDW 14.5 % (11.5-15.5); WBC 10.5 k/uL (3.8-10.6); WBC (Perox) 11.29
[2017-04-08 06:26] LABS: Glucose,Whole Blood 131 mg/dL (75-99)
[2017-04-08 06:30] LABS: Anion Gap 13 mmol/L; Blood Urea Nitrogen 3 mg/dL (7-17); Calcium 8.1 mg/dL (8.4-10.2); Carbon Dioxide 27 mmol/L (22-30); Chloride 95 mmol/L (98-107); Glucose 135 mg/dL (74-99); Non-African American GFR(MDRD) >60 (>60 ml/min/1.73 sqM); Potassium 3.2 mmol/L (3.5-5.1); Sodium 135 mmol/L (137-145)
[2017-04-08] MEDS: INSULIN LISPRO (humaLOG) 300 UNIT/3 ML VIAL SQ SCH ×7 (06:53→21:22)
--- NOTE | 2017-04-08 08:21 | CT ---
EXAMINATION TYPE: CT pancreas biphase DATE OF EXAM: 04/07/2017 HISTORY: Abdominal pain CT DLP: 1792.8mGycm Automated Exposure Control for Dose Reduction was Utilized. CONTRAST: CT scan of the abdomen is performed with IV Contrast, patient injected with 100 mL of Omnipaque 300. Biphasic pancreas protocol. COMPARISON: CT abdomen pelvis dated 04/04/2017 FINDINGS: LUNG BASES: Trace pleural effusions and minimal bibasilar subsegmental atelectasis are noted. LIVER/GB: There is diffuse hypoattenuation of the hepatic parenchyma compatible with hepatic steatosi s, limiting evaluation for underlying hepatic masses. The gallbladder remains elongated measuring 11. 9 cm in longitudinal dimension containing numerous cholesterol laden gallstones. Hepatic hyperemia ar ound the gallbladder fossa is thought to be reactive, inflammatory in etiology. PANCREAS: The previously seen extensive peripancreatic inflammatory changes are overall unchanged. Th e previously questioned pancreatic necrosis within the pancreatic head is no longer visualized as on arterial and portal venous phases the pancreatic parenchyma enhances nearly homogeneously. No acute p eripancreatic necrotic fluid collection is appreciated. No evidence of splenic artery pseudoaneurysm. No evidence of thrombus within the portal vein or splenic vein, however portal venous confluence and superior mesenteric vein are not completely opacified although no definitive thrombus is appreciated . SPLEEN: No significant abnormality is seen. Small splenule is noted inferior to the [place] spleen. ADRENALS: No significant abnormality is seen. KIDNEYS: There is a macrolobulated contour of both kidneys which may relate to congenital lobul ation or sequela of multifocal injury. BOWEL: Prominent but not enlarged loops of small bowel are clustered within the left upper quadrant s tacking upon one another. Findings relate to inflammatory ileus. No evidence of obstruction and the v isualized bowel. LYMPH NODES: Enlarged portacaval lymph node measures 1.5 cm in short axis. Numerous prominent peripan creatic lymph nodes are also appreciated, reactive in nature. Scattered nonenlarged mesenteric lymph nodes are also seen. OSSEOUS STRUCTURES: No suspicious abnormality is seen. Degenerative changes of the thoracic spine are noted. OTHER: New perihepatic and perisplenic ascites is seen as well as mesenteric congestion and ascites w ithin the central mesentery. Free fluid layers on the lateral conal fascia. No circumscribed fluid co llection. Small fluid and fat filled umbilical hernia is also noted superimposed upon diastases recti . Moderate anasarca is most pronounced within the lower abdomen and visualized pelvis. IMPRESSION: 1. Sequela of acute pancreatitis, unchanged in degree in comparison to the prior, with no evidence on the current examination to suggest pancreatic parenchymal necrosis. No splenic pseudoaneurysm, focal acute necrotic fluid collection, or venous thrombus within the portal or splenic veins. Extensive ph legmonous changes are seen within the central abdomen creating small bowel ileus in reactive inflamma tory change of the gallbladder fossa. 2. New small volume abdominal ascites, sequela of mesenteric congestion from the acute pancreatitis. 3. Peripancreatic and portacaval adenopathy also related to acute pancreatitis.
[2017-04-08] MEDS: GABAPENTIN 300 MG CAP PO SCH ×3 (09:25→21:17)
[2017-04-08] MEDS: METHADONE 10 MG TAB PO SCH (09:25)
[2017-04-08] MEDS: PIPERACILLIN-TAZOBACTAM 3.375 GM in DEXTROSE/WATER 1 50ML.BAG IVPB SCH ×2 (09:25→15:33)
[2017-04-08] MEDS: LORazepam 2 MG/ML SYRINGE IV PRN (11:04)
[2017-04-08 11:44] LABS: Glucose,Whole Blood 145 mg/dL (75-99)
--- NOTE | 2017-04-08 14:18 | P.PN ---
Subjective Principal diagnosis: Severe acute pancreatitis Patient says her pain is improved overall. May be some increased pain slightly in the back. Her repeat CAT scan shows no evidence of pancreatic necrosis. She does have some ascites. White blood cell count today is 10.5. She is hungry. Objective - Vital Signs Vital signs: Vital Signs Temp 97.9 F 04/08/17 03:54 Pulse 97 04/08/17 12:00 Resp 18 04/08/17 12:00 BP 154/69 04/08/17 12:00 Pulse Ox 94 L 04/08/17 12:00 Intake & Output 04/07/17 04/08/17 04/08/17 18:59 06:59 18:59 Intake Total 850 1000 Balance 850 1000 Weight 106.8 kg 102.6 kg Intake: IV 850 600 Lactated Ringers 1,000 ml 850 600 @ 150 mls/hr IV .Q6H40M [facility] Rx#:[id number] Intake, IV Titration 100 Amount Piperacillin-Tazobactam 3 100 .375 gm In Dextrose/Water 1 50ml.bag @ 12.5 mls/hr IVPB Q8HR [facility] Rx#: [id number] Oral 300 Other: Voiding Method Bedside Commode Bedside Commode Bedside Commode # Voids 2 2 - Exam Abdomen: Soft, mild distention, mild epigastric tenderness - Labs CBC & Chem 7: 04/08/17 05:52 04/08/17 05:52 Labs: Abnormal Lab Results - Last 24 Hours (Table) 04/07/17 04/07/17 04/08/17 Range/Units 16:47 20:41 05:52 Neutrophils # 8.2 H (1.3-7.7) k/uL Sodium (137-145) mmol/L Potassium (3.5-5.1) mmol/L Chloride (98-107) mmol/L BUN (7-17) mg/dL Creatinine (0.52-1.04) mg/dL Glucose (74-99) mg/dL POC Glucose (mg/dL) 126 H 134 H (75-99) mg/dL Calcium (8.4-10.2) mg/dL 04/08/17 04/08/17 04/08/17 Range/Units 05:52 06:19 11:41 Neutrophils # (1.3-7.7) k/uL Sodium 135 L (137-145) mmol/L Potassium 3.2 L (3.5-5.1) mmol/L Chloride 95 L (98-107) mmol/L BUN 3 L (7-17) mg/dL Creatinine 0.30 L (0.52-1.04) mg/dL Glucose 135 H (74-99) mg/dL POC Glucose (mg/dL) 131 H 145 H (75-99) mg/dL Calcium 8.1 L (8.4-10.2) mg/dL Microbiology - Last 24 Hours (Table) 04/05/17 21:56 Blood Culture - Preliminary Blood No Growth after 48 hours Assessment and Plan (1) Gallstone pancreatitis Narrative/Plan: Will start clear liquid diet. Repeat lab work tomorrow. Anticipate laparoscopic cholecystectomy shortly after discharge. Status: Acute
--- NOTE | 2017-04-08 14:52 | P.CN ---
Psychiatric Consult - . Consult date: 04/08/17 Consult:: 04/08/17 14:36 Identification and Reason for Consult: Patient is a 37-year-old female who was admitted for pancreatitis and DKA. Consult was requested for inappropriate behavior. The chart was reviewed and the patient was seen in her room and her was present during the interview. History of Present Illness: Patient states that she came to the hospital after having an acute onset of abdominal pain and was told she now has gallstones and pancreatitis and she reported that her diabetes has not been well controlled prior to her admission. When I asked the patient about her behavior last evening she stated that she was in a lot of pain and began moaning loudly and would not shut up and denied yelling, calling people names or being confused. Patient states that her pain control has been fair. Patient stated that she was in a lot of pain and wanted relief and states that no one would pay her attention. Patient and her both expressed their surprise at having a psychiatric consultation called. Patient denies any prior psychiatric treatment and states that she has not been feeling depressed and denied feeling confused or disoriented and states that she is in pain and wanted relief. Patient reported that she was in a lot of pain and was moving around in the bed to get comfortable and asked that the interview because short period. Patient did not endorse any symptoms of depression, no psychotic symptoms and no manic symptoms. Past Psychiatric History: Patient states that she has never been treated as an outpatient for any psychiatric concerns and states that she was hospitalized once in [place] for 3 days after which she describes as a "breakdown" when her who has bipolar disorder was having a manic episode. She reports never having been given any psychiatric medication. Past Medical/Surgical History: Patient has a history of hypertension, elevated lipids, diabetes, hypothyroidism, asthma and she has a heart murmur. Patient reports her only surgery was a . Patient states she is on methadone 120 mg a day for chronic pain. Current Medications: Current Medications Gabapentin (Neurontin) 600 mg PO TID [facility] Last Admin: 04/08/17 09:25 Dose: 600 mg Hydralazine HCl (Apresoline) 10 mg IVP Q6HR PRN PRN Reason: Blood Pressure - High Last Admin: 04/06/17 09:06 Dose: 10 mg Hydromorphone HCl (Dilaudid) 0.5 mg IVP Q3HR PRN PRN Reason: Moderate Pain Last Admin: 04/08/17 10:52 Dose: 0.5 mg Piperacillin/Tazobactam/ (Dextrose 3.375 gm/ IV Solution) 50 mls @ 12.5 mls/hr IVPB Q8HR [facility] Last Admin: 04/08/17 09:25 Dose: 12.5 mls/hr Lactated Ringer's (Lactated Ringers) 1,000 mls @ 150 mls/hr IV .Q6H40M [facility] Last Admin: 04/08/17 10:31 Dose: Not Given Sodium Chloride (Saline 0.9%) 1,000 mls @ 100 mls/hr IV .Q10H [facility] Last Admin: 04/08/17 13:16 Dose: Not Given Insulin Glargine (Lantus) 30 unit 0.3 unit/kg (30 unit) SQ HS [facility] Last Admin: 04/07/17 21:03 Dose: 30 unit Insulin Human Lispro (Humalog) 10 unit 0.1 unit/kg (10 unit) SQ AC-TID [facility] Last Admin: 04/08/17 12:00 Dose: Not Given Insulin Human Lispro (Humalog) 0 unit SQ ACHS [facility] PRN Reason: Protocol Last Admin: 04/08/17 12:11 Dose: Not Given Iohexol (Omnipaque 350 Mg/Ml (For Oral Use)) 25 ml PO ONCE PRN PRN Reason: CT Scan Stop: 04/08/17 18:42 Last Admin: 04/07/17 18:54 Dose: 25 ml Lorazepam (Ativan) 0.5 mg IV TID PRN PRN Reason: Anxiety Last Admin: 04/08/17 11:04 Dose: 0.5 mg Methadone HCl (Dolophine) 120 mg PO DAILY [facility] Last Admin: 04/08/17 09:25 Dose: 120 mg Miscellaneous Information (Magnesium Per Protocol) 1 each MISCELLANE DAILY PRN ; Protocol PRN Reason: Per Protocol Miscellaneous Information (Rx Info: Iv Contrast Was Given) 1 each MISCELLANE DAILY PRN PRN Reason: Per Protocol Stop: 04/09/17 18:42 Ondansetron HCl (Zofran) 4 mg IVP Q6HR PRN PRN Reason: Nausea And Vomiting Last Admin: 04/06/17 09:06 Dose: 4 mg Family History: Not obtained as the patient requested that the interview be cut short. Social History: Patient lives with her and 3 children, her was present during the interview and she stated that he is being treated for bipolar disorder. Substance Use History: Patient denies any current drug or alcohol use, stating she experimented with drugs when she was much younger Mental Status:Appearance/Attitude: Patient is dressed in a hospital gown and was unable to get comfortable in her bed reporting that she was in pain and moving around in the bed, she was cooperative but surprised by the consult Behavior: Patient did not display any psychomotor agitation or retardation. Speech/Language: Patient's speech was spontaneous, normal volume and rhythm and she was coherent. Thought Process: Patient was goal-directed and there was no evidence of circumstantial or tangential thought and no loose associations or flight of ideas. Thought Content: Patient did not have any auditory or visual hallucinations no delusions or paranoid ideation were elicited. Patient was surprised by the consult and states that her behavior was not inappropriate last evening, stating that she was irritated that no one was responding to her reports of pain. She states that she "wouldn't shut up" and was moaning loudly in pain. She states that she was not confused and denies that she was using abusive language. Suicidal/Homicidal Ideation: She denies any current suicidal or homicidal ideation. Sensorium/Cognition: Patient was alert and oriented to person, place, and time and her memory is grossly intact. Mood/Affect: Patient's mood was irritable due to her pain and her affect was appropriate to the situation. Assessment: Patient was surprised as was her with the request for psychiatric consultation and when I told her it was for inappropriate behavior she stated that she was irritated last night when no one would respond to her reports of pain. Patient states that she moaning loudly and went shut up. Patient denies using any abusive language or becoming aggressive in her behavior. Patient reported that she was in a lot of pain will I was interviewing her and was unable to sit quietly in the bed constantly moving to find a more comfortable position and asked that the interview be cut short. Diagnosis: acute pain secondary to pancreatitis affecting her behavior Plan: Patient is not exhibiting any depressive, manic, psychotic or delirious symptoms currently and has no history of psychiatric treatment or diagnosis, and there is no indication for psychotropic medication. Patient states she was in pain and was moaning loudly and would not shut up, discussed with patient more appropriate ways to communicate her concerns, she asked that the interview be terminated due to her pain. 04/08/17 14:40 04/08/17 14:41
[2017-04-08 16:44] LABS: Glucose,Whole Blood 140 mg/dL (75-99)
[2017-04-08] MEDS: INSULIN GLARGINE 100 UNIT/ML 10 ML VIAL SQ SCH (21:21)
[2017-04-08 21:22] LABS: Glucose,Whole Blood 109 mg/dL (75-99)
[2017-04-09] MEDS: HYDROmorphone 1 MG/ML 1 ML SYRINGE IVP PRN ×6 (00:41→17:50)
[2017-04-09] MEDS: PIPERACILLIN-TAZOBACTAM 3.375 GM in DEXTROSE/WATER 1 50ML.BAG IVPB SCH ×4 (01:15→23:34)
[2017-04-09] MEDS: LORazepam 2 MG/ML SYRINGE IV PRN ×3 (02:41→14:15)
[2017-04-09] MEDS: LACTATED RINGERS 1,000 ML IV SCH ×4 (04:36→21:00)
[2017-04-09] MEDS: SODIUM CHLORIDE 0.9% 1,000 ML IV SCH ×3 (04:39→21:00)
[2017-04-09 06:59] LABS: Basophils % (A) 1 %; CH 28.9; CHCM 34.8; Eosinophils # (A) 0.2 k/uL (0-0.7); Eosinophils % (A) 2 %; HCT 35.6 % (34.0-46.0); HDW 3.44; HGB 12.4 gm/dL (11.4-16.0); Luc # (Auto) 0.13; Luc % (Auto) 1; Lymphocytes # (A) 1.5 k/uL (1.0-4.8); Lymphocytes % (A) 15 %; MCHC 34.8 g/dL (31.0-37.0); MCV 83.5 fL (80.0-100.0); Mean Platelet Volume 6.9; Monocytes # (A) 0.4 k/uL (0-1.0); Monocytes % (A) 4 %; Neutrophils # (A) 7.5 k/uL (1.3-7.7); Neutrophils % (A) 77 %; Poikilocytosis Slight; RBC 4.27 m/uL (3.80-5.40); WBC 9.7 k/uL (3.8-10.6); WBC (Perox) 9.87
[2017-04-09 07:22] LABS: Anion Gap 11 mmol/L; Blood Urea Nitrogen 2 mg/dL (7-17); Carbon Dioxide 29 mmol/L (22-30); Chloride 97 mmol/L (98-107); Glucose 133 mg/dL (74-99); Potassium 3.2 mmol/L (3.5-5.1); Sodium 137 mmol/L (137-145)
[2017-04-09 07:23] LABS: ALT 33 U/L (9-52); AST 23 U/L (14-36); Alkaline Phosphatase 92 U/L (38-126); Amylase 47 U/L (30-110); Calcium 8.9 mg/dL (8.4-10.2); Non-African American GFR(MDRD) >60 (>60 ml/min/1.73 sqM); Total Bilirubin 0.6 mg/dL (0.2-1.3); Total Protein 5.6 g/dL (6.3-8.2)
[2017-04-09 07:46] LABS: Glucose,Whole Blood 130 mg/dL (75-99)
[2017-04-09] MEDS: INSULIN LISPRO (humaLOG) 300 UNIT/3 ML VIAL SQ SCH ×7 (08:22→20:56)
[2017-04-09] MEDS: METHADONE 10 MG TAB PO SCH (08:27)
[2017-04-09] MEDS: GABAPENTIN 300 MG CAP PO SCH ×3 (08:27→20:56)
[2017-04-09 12:12] LABS: Glucose,Whole Blood 139 mg/dL (75-99)
[2017-04-09 12:14] VITALS: BMI 40.8
--- NOTE | 2017-04-09 16:10 | P.PN ---
Subjective Principal diagnosis: Severe acute pancreatitis Patient says she feels better. Her back pain is improved as well. Her amylase and liver enzymes are normal today. Afebrile. Tolerating clear liquids. Objective - Vital Signs Vital signs: Vital Signs Temp 99 F 04/09/17 07:00 Pulse 80 04/09/17 08:00 Resp 16 04/09/17 08:00 BP 157/80 04/09/17 07:00 Pulse Ox 99 04/09/17 07:00 Intake & Output 04/08/17 04/09/17 04/09/17 18:59 06:59 18:59 Intake Total 1000 1390 1240 Balance 1000 1390 1240 Weight 103 kg 103 kg Intake: IV 600 800 650 Lactated Ringers 1,000 ml 600 800 650 @ 150 mls/hr IV .Q6H40M [facility] Rx#:[id number] Intake, IV Titration 100 50 50 Amount Piperacillin-Tazobactam 3 100 50 50 .375 gm In Dextrose/Water 1 50ml.bag @ 12.5 mls/hr IVPB Q8HR [facility] Rx#: [id number] Oral 300 540 540 Other: Voiding Method Toilet Toilet Toilet Bedside Commode Bedside Commode Bedside Commode # Voids 2 2 3 - Exam Abdomen: Soft, mild epigastric tenderness, no rebound or guarding - Labs CBC & Chem 7: 04/09/17 06:37 04/09/17 06:37 Labs: Abnormal Lab Results - Last 24 Hours (Table) 04/08/17 04/08/17 04/09/17 Range/Units 16:43 21:20 06:37 Potassium 3.2 L (3.5-5.1) mmol/L Chloride 97 L (98-107) mmol/L BUN 2 L (7-17) mg/dL Creatinine 0.37 L (0.52-1.04) mg/dL Glucose 133 H (74-99) mg/dL POC Glucose (mg/dL) 140 H 109 H (75-99) mg/dL Total Protein 5.6 L (6.3-8.2) g/dL Albumin 2.9 L (3.5-5.0) g/dL 04/09/17 04/09/17 Range/Units 07:39 12:09 Potassium (3.5-5.1) mmol/L Chloride (98-107) mmol/L BUN (7-17) mg/dL Creatinine (0.52-1.04) mg/dL Glucose (74-99) mg/dL POC Glucose (mg/dL) 130 H 139 H (75-99) mg/dL Total Protein (6.3-8.2) g/dL Albumin (3.5-5.0) g/dL Microbiology - Last 24 Hours (Table) 04/05/17 21:56 Blood Culture - Preliminary Blood No Growth after 72 hours Assessment and Plan (1) Gallstone pancreatitis Narrative/Plan: Will advance diet. Increase activity levels. Interval cholecystectomy post discharge. Status: Acute
[2017-04-09 17:36] LABS: Glucose,Whole Blood 181 mg/dL (75-99)
[2017-04-09] MEDS: ONDANSETRON 4 MG/2 ML VIAL IVP PRN (17:49)
[2017-04-09 20:37] LABS: Glucose,Whole Blood 151 mg/dL (75-99)
[2017-04-09] MEDS: METOPROLOL TARTRATE 25 MG TAB PO SCH (20:55)
[2017-04-09] MEDS: INSULIN GLARGINE 100 UNIT/ML 10 ML VIAL SQ SCH (21:05)
--- NOTE | 2017-04-09 23:25 | P.PN ---
Subjective Principal diagnosis: DKA and acute pancreatitis This is a 37-year-old female with past history of uncontrolled diabetes mellitus with his HbA1c of 10, polysubstance abuse currently on methadone 120 mg daily as per patient came to ER for evaluation of abdominal pain along with nausea and diarrhea. Patient has history of MS. Patient states family members including daughter who is also sick. Patient is complaining of diffuse generalized abdominal pain. Nausea. Vomiting. No history of similar symptoms. No history of bowel surgery. Patient had CT of the abdomen and pelvis was done in the ER showed. Pancreatic fluid and possible necrosis. Patient also had gallstones with with fat stranding. General surgery has been consulted for further evaluation. Patient is being treated for acute diabetic ketoacidosis. Patient is requesting IV pain medication. Will start on methadone after verifying with methadone clinic. 04/06/2017 Patient says that her abdominal pain is better today. Patient current is to be febrile T-max of 101 today. Her calcium level is 5.7 and albumin 2.5 General surgery is following this patient and is planning for repeat CT abdomen. 04/07/2017 Patient is still having diffuse abdominal pain. No fever no chills. Lipase level trending down to 500 today. Patient is still requesting IV pain medications. Calcium level improved to 6.1. Patient has been afebrile today. Repeat CT abdomen was ordered to LAD progress of pancreatic necrosis. 04/08/2017 Calcium level improved to 8.1 today. Abdominal pain improved as well. Repeat computed tomography scan abdomen showed no new changes. No fever no chills. Patient is tolerating liquids. Replaced pressure level. Objective - Vital Signs Vital signs: Vital Signs Temp 98.6 F 04/09/17 20:30 Pulse 113 H 04/09/17 20:30 Resp 16 04/09/17 20:30 BP 138/79 04/09/17 20:30 Pulse Ox 95 04/09/17 20:30 Intake & Output 04/09/17 04/09/17 04/10/17 06:59 18:59 06:59 Intake Total 1390 1240 100 Balance 1390 1240 100 Weight 103 kg 103 kg Intake: IV 800 650 Lactated Ringers 1,000 ml 800 650 @ 150 mls/hr IV .Q6H40M [facility] Rx#:[id number] Intake, IV Titration 50 50 100 Amount Piperacillin-Tazobactam 3 50 50 .375 gm In Dextrose/Water 1 50ml.bag @ 12.5 mls/hr IVPB Q8HR [facility] Rx#: [id number] Sodium Chloride 0.9% 1, 100 000 ml @ 100 mls/hr IV . Q10H [facility] Rx#:[id number] Oral 540 540 Other: Voiding Method Toilet Toilet Bedside Commode Bedside Commode # Voids 2 3 # Bowel Movements 1 - Exam PHYSICAL EXAMINATION: Patient is lying in the bed comfortably, no acute distress, awake alert and oriented.. Patient is anxious HEENT: Normocephalic. Neck is supple. Pupils reactive. Nostrils clear. Oral cavity is moist. Ears reveal no drainage. Neck reveals no JVD, carotid bruits, or thyromegaly. CHEST EXAMINATION: Trachea is central. Symmetrical expansion. Lung fitzgerald clear to auscultation and percussion. CARDIAC: Normal S1, S2 with no gallops. No murmurs ABDOMEN: Soft. Bowel sounds normal. Nontender. No organomegaly. No abdominal bruits. Extremities reveal no edema. No clubbing or cyanosis Neurologically awake, alert, oriented x3 with well-coordinated movements. Skin: no rash or skin lesions Musculoskeletal: no joint swelling or deformity. - Labs CBC & Chem 7: 04/09/17 06:37 04/09/17 06:37 Labs: Abnormal Lab Results - Last 24 Hours (Table) 04/09/17 04/09/17 04/09/17 Range/Units 06:37 07:39 12:09 Potassium 3.2 L (3.5-5.1) mmol/L Chloride 97 L (98-107) mmol/L BUN 2 L (7-17) mg/dL Creatinine 0.37 L (0.52-1.04) mg/dL Glucose 133 H (74-99) mg/dL POC Glucose (mg/dL) 130 H 139 H (75-99) mg/dL Total Protein 5.6 L (6.3-8.2) g/dL Albumin 2.9 L (3.5-5.0) g/dL 04/09/17 04/09/17 Range/Units 17:33 20:30 Potassium (3.5-5.1) mmol/L Chloride (98-107) mmol/L BUN (7-17) mg/dL Creatinine (0.52-1.04) mg/dL Glucose (74-99) mg/dL POC Glucose (mg/dL) 181 H 151 H (75-99) mg/dL Total Protein (6.3-8.2) g/dL Albumin (3.5-5.0) g/dL Microbiology - Last 24 Hours (Table) 04/05/17 21:56 Blood Culture - Preliminary Blood No Growth after 72 hours Assessment and Plan Plan: Fever Acute diabetic ketoacidosis. 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 Lipase level was 3432. Improved to 532. Pain improved. Acute cholecystitis with pericolic fat stranding Lactic acidosis. Resolved History of multiple sclerosis Polysubstance abuse currently on methadone Chronic pain Hypertension, hyperlipidemia, hypothyroidism, osteoarthritis Plan: Patient be continued on insulin dose for diabetes and continue the pain management with Dilaudid and methadone on 120 mg daily. Continue with DVT prophylaxis. General surgery is on board. Repeat CT abdomen was ordered. Repeat CT showed no new changes. Continue with IV hydration. She is tolerating liquids.
--- NOTE | 2017-04-09 23:29 | P.PN ---
Subjective Principal diagnosis: DKA and acute pancreatitis This is a 37-year-old female with past history of uncontrolled diabetes mellitus with his HbA1c of 10, polysubstance abuse currently on methadone 120 mg daily as per patient came to ER for evaluation of abdominal pain along with nausea and diarrhea. Patient has history of MS. Patient states family members including daughter who is also sick. Patient is complaining of diffuse generalized abdominal pain. Nausea. Vomiting. No history of similar symptoms. No history of bowel surgery. Patient had CT of the abdomen and pelvis was done in the ER showed. Pancreatic fluid and possible necrosis. Patient also had gallstones with with fat stranding. General surgery has been consulted for further evaluation. Patient is being treated for acute diabetic ketoacidosis. Patient is requesting IV pain medication. Will start on methadone after verifying with methadone clinic. 04/06/2017 Patient says that her abdominal pain is better today. Patient current is to be febrile T-max of 101 today. Her calcium level is 5.7 and albumin 2.5 General surgery is following this patient and is planning for repeat CT abdomen. 04/07/2017 Patient is still having diffuse abdominal pain. No fever no chills. Lipase level trending down to 500 today. Patient is still requesting IV pain medications. Calcium level improved to 6.1. Patient has been afebrile today. Repeat CT abdomen was ordered to LAD progress of pancreatic necrosis. 04/08/2017 Calcium level improved to 8.1 today. Abdominal pain improved as well. Repeat computed tomography scan abdomen showed no new changes. No fever no chills. Patient is tolerating liquids. Replaced pressure level. 04/09/2017 Patient's abdominal pain is much improved now. Amylase level is normal. Tolerating liquid diet and advance it to regular. No fever no chills. And as per discharge in next 1-2 days. Objective - Vital Signs Vital signs: Vital Signs Temp 98.4 F 04/09/17 15:00 Pulse 89 04/09/17 16:00 Resp 16 04/09/17 16:00 BP 135/86 04/09/17 15:00 Pulse Ox 94 L 04/09/17 15:00 Intake & Output 04/09/17 04/09/17 04/10/17 06:59 18:59 06:59 Intake Total 1390 1240 Balance 1390 1240 Weight 103 kg 103 kg Intake: IV 800 650 Lactated Ringers 1,000 ml 800 650 @ 150 mls/hr IV .Q6H40M [facility] Rx#:[id number] Intake, IV Titration 50 50 Amount Piperacillin-Tazobactam 3 50 50 .375 gm In Dextrose/Water 1 50ml.bag @ 12.5 mls/hr IVPB Q8HR [facility] Rx#: [id number] Oral 540 540 Other: Voiding Method Toilet Toilet Bedside Commode Bedside Commode # Voids 2 3 - Exam PHYSICAL EXAMINATION: Patient is lying in the bed comfortably, no acute distress, awake alert and oriented.. Patient is anxious HEENT: Normocephalic. Neck is supple. Pupils reactive. Nostrils clear. Oral cavity is moist. Ears reveal no drainage. Neck reveals no JVD, carotid bruits, or thyromegaly. CHEST EXAMINATION: Trachea is central. Symmetrical expansion. Lung fitzgerald clear to auscultation and percussion. CARDIAC: Normal S1, S2 with no gallops. No murmurs ABDOMEN: Soft. Bowel sounds normal. Nontender. No organomegaly. No abdominal bruits. Extremities reveal no edema. No clubbing or cyanosis Neurologically awake, alert, oriented x3 with well-coordinated movements. Skin: no rash or skin lesions Musculoskeletal: no joint swelling or deformity. - Labs CBC & Chem 7: 04/09/17 06:37 04/09/17 06:37 Labs: Abnormal Lab Results - Last 24 Hours (Table) 04/09/17 04/09/17 04/09/17 Range/Units 06:37 07:39 12:09 Potassium 3.2 L (3.5-5.1) mmol/L Chloride 97 L (98-107) mmol/L BUN 2 L (7-17) mg/dL Creatinine 0.37 L (0.52-1.04) mg/dL Glucose 133 H (74-99) mg/dL POC Glucose (mg/dL) 130 H 139 H (75-99) mg/dL Total Protein 5.6 L (6.3-8.2) g/dL Albumin 2.9 L (3.5-5.0) g/dL 04/09/17 04/09/17 Range/Units 17:33 20:30 Potassium (3.5-5.1) mmol/L Chloride (98-107) mmol/L BUN (7-17) mg/dL Creatinine (0.52-1.04) mg/dL Glucose (74-99) mg/dL POC Glucose (mg/dL) 181 H 151 H (75-99) mg/dL Total Protein (6.3-8.2) g/dL Albumin (3.5-5.0) g/dL Microbiology - Last 24 Hours (Table) 04/05/17 21:56 Blood Culture - Preliminary Blood No Growth after 72 hours Assessment and Plan Plan: Fever Acute diabetic ketoacidosis. 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 Lipase level was 3432. Improved to 532. Lipase normalized. Pain improved. Acute cholecystitis with pericolic fat stranding Lactic acidosis. Resolved History of multiple sclerosis Polysubstance abuse currently on methadone Chronic pain Hypertension, hyperlipidemia, hypothyroidism, osteoarthritis Adjustment disorder with delirium. No history of psychiatric illness. Seen by psychiatric and recommended no medications. Plan: Patient be continued on insulin dose for diabetes and continue the pain management with Dilaudid and methadone on 120 mg daily. Continue with DVT prophylaxis. General surgery is on board. Repeat CT abdomen was ordered. Repeat CT showed no new changes. Continue with IV hydration. She is tolerating liquids. Advance to regular diet.
[2017-04-10] MEDS: HYDROmorphone 1 MG/ML 1 ML SYRINGE IVP PRN ×5 (05:33→14:17)
[2017-04-10] MEDS: LACTATED RINGERS 1,000 ML IV SCH (07:12)
[2017-04-10] MEDS: LORazepam 2 MG/ML SYRINGE IV PRN (07:33)
[2017-04-10 07:38] LABS: Basophils % (A) 0 %; CHCM 34.5; Eosinophils # (A) 0.3 k/uL (0-0.7); Eosinophils % (A) 3 %; HCT 35.4 % (34.0-46.0); HDW 3.51; HGB 12.1 gm/dL (11.4-16.0); Luc % (Auto) 2; Lymphocytes # (A) 2.2 k/uL (1.0-4.8); Lymphocytes % (A) 23 %; MCH 28.8 pg (25.0-35.0); MCV 84.6 fL (80.0-100.0); Mean Platelet Volume 7.2; Monocytes # (A) 0.5 k/uL (0-1.0); Monocytes % (A) 5 %; Neutrophils # (A) 6.3 k/uL (1.3-7.7); Neutrophils % (A) 66 %; Poikilocytosis Slight; RBC 4.19 m/uL (3.80-5.40); RDW 14.3 % (11.5-15.5); WBC 9.6 k/uL (3.8-10.6); WBC (Perox) 9.65
[2017-04-10] MEDS: METHADONE 10 MG TAB PO SCH (07:41)
[2017-04-10] MEDS: INSULIN LISPRO (humaLOG) 300 UNIT/3 ML VIAL SQ SCH ×4 (07:42→12:20)
[2017-04-10] MEDS: GABAPENTIN 300 MG CAP PO SCH (07:44)
[2017-04-10] MEDS: METOPROLOL TARTRATE 25 MG TAB PO SCH (07:45)
[2017-04-10 07:46] LABS: ALT 36 U/L (9-52); AST 22 U/L (14-36); Alkaline Phosphatase 92 U/L (38-126); Amylase 42 U/L (30-110); Anion Gap 12 mmol/L; Blood Urea Nitrogen 4 mg/dL (7-17); Calcium 9.1 mg/dL (8.4-10.2); Carbon Dioxide 30 mmol/L (22-30); Chloride 97 mmol/L (98-107); Glucose 142 mg/dL (74-99); Non-African American GFR(MDRD) >60 (>60 ml/min/1.73 sqM); Potassium 3.1 mmol/L (3.5-5.1); Sodium 139 mmol/L (137-145); Total Bilirubin 0.6 mg/dL (0.2-1.3); Total Protein 5.9 g/dL (6.3-8.2)
[2017-04-10] MEDS: PIPERACILLIN-TAZOBACTAM 3.375 GM in DEXTROSE/WATER 1 50ML.BAG IVPB SCH (07:46)
[2017-04-10 07:56] LABS: Glucose,Whole Blood 147 mg/dL (75-99)
[2017-04-10 08:33] VITALS: BP 159/92; PULSE 101; RESP 18; TEMP 98.4
[2017-04-10] MEDS ORDERED: POTASSIUM CHLORIDE ER 20 MEQ TAB.ER PO SCH (09:00)
[2017-04-10] MEDS: SODIUM CHLORIDE 0.9% 1,000 ML IV SCH ×2 (10:24→10:25)
[2017-04-10 11:39] LABS: Glucose,Whole Blood 107 mg/dL (75-99)
[2017-04-10 12:24] LABS: Glucose,Whole Blood 109 mg/dL (75-99)
--- NOTE | 2017-04-10 14:35 | P.PN ---
Progress Note - Text Was admitted with the severe gallstone pancreatitis. She tolerated a diet and she is able to eat all of her breakfast and LUNCH today. Amylase and lipase were down to normal. Abdomen is fairly soft nontender no masses or organomegaly. Amylase is down to normal. Impression resolved the acute gallstone pancreatitis. Recommendation continued medical management. When patient is discharged she can follow up with Dr. Saab as an outpatient. She is awaiting her methadone prescriptions.
--- NOTE | 2017-04-11 01:38 | P.DS ---
Providers Date of admission: 04/04/17 22:42 Expected date of discharge: 04/10/17 Attending physician: Kaylah Castle Consults: 04/05/17 06:14 Consult Physician Routine Consulting Provider: Yves Saab Consult Reason/Comments: abd pain Do you want consulting provider notified?: Yes, Notify in am 04/08/17 03:33 Consult Physician Routine Consulting Provider: Michelle Gill Consult Reason/Comments: INAPPROPRIATE BEHAVIOR Do you want consulting provider notified?: Yes, Notify in am Primary care physician: Elier Andrew Hospital Course: Discharge diagnosis Acute diabetic ketoacidosis. 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 Lipase level was 3432. Improved to 532. Lipase normalized. Pain improved. Acute cholecystitis with pericolic fat stranding Lactic acidosis. Resolved History of multiple sclerosis Polysubstance abuse currently on methadone Chronic pain Hypertension, hyperlipidemia, hypothyroidism, osteoarthritis Adjustment disorder with delirium. No history of psychiatric illness. Seen by psychiatric and recommended no medications. Hospital course This is a 37-year-old female with past history of uncontrolled diabetes mellitus with his HbA1c of 10, polysubstance abuse currently on methadone 120 mg daily as per patient came to ER for evaluation of abdominal pain along with nausea and diarrhea. Patient has history of MS. Patient states family members including daughter who is also sick. Patient is complaining of diffuse generalized abdominal pain. Nausea. Vomiting. No history of similar symptoms. No history of bowel surgery. Patient had CT of the abdomen and pelvis was done in the ER showed. Pancreatic fluid and possible necrosis. Patient also had gallstones with with fat stranding. General surgery has been consulted for further evaluation. Patient is being treated for acute diabetic ketoacidosis. Patient is requesting IV pain medication. Will start on methadone after verifying with methadone clinic. 04/06/2017 Patient says that her abdominal pain is better today. Patient current is to be febrile T-max of 101 today. Her calcium level is 5.7 and albumin 2.5 General surgery is following this patient and is planning for repeat CT abdomen. 04/07/2017 Patient is still having diffuse abdominal pain. No fever no chills. Lipase level trending down to 500 today. Patient is still requesting IV pain medications. Calcium level improved to 6.1. Patient has been afebrile today. Repeat CT abdomen was ordered to LAD progress of pancreatic necrosis. 04/08/2017 Calcium level improved to 8.1 today. Abdominal pain improved as well. Repeat computed tomography scan abdomen showed no new changes. No fever no chills. Patient is tolerating liquids. Replaced pressure level. 04/09/2017 Patient's abdominal pain is much improved now. Amylase level is normal. Tolerating liquid diet and advance it to regular. No fever no chills. And as per discharge in next 1-2 days. 04/10/2017 patient says that her doctor is better and wants it and a republican at home and left AMA Patient was continued on insulin dose for diabetes and continue the pain management with Dilaudid and methadone on 120 mg daily. Continue with DVT prophylaxis. General surgery is on board. Repeat CT abdomen was ordered. Repeat CT showed no new changes. Continue with IV hydration. She is tolerating liquids. Advance to regular diet. Patient was advised to follow with Dr. Odonnell has not patient. Patient left against medical advice Patient Condition at Discharge: Serious Plan - Discharge Summary New Discharge Prescriptions: No Action Albuterol Sulfate [Proair Hfa] 1 - 2 puff INHALATION RT-Q6H PRN PRN Reason: difficulty breathing Furosemide [Lasix] 40 mg PO TID Potassium Chloride [Klor-Con 10] 10 meq PO BID Ondansetron [Zofran] 4 mg PO Q8HR PRN PRN Reason: Nausea Methylphenidate HCl [Ritalin] 20 mg PO TID Ergocalciferol [Vitamin D2] 50,000 unit PO MO ALPRAZolam [Xanax] 0.25 mg PO BID PRN PRN Reason: Anxiety Gabapentin [Neurontin] 600 mg PO TID Methadone HCl [Methadone Intensol] 120 mg PO DAILY Discharge Medication List Albuterol Sulfate [Proair Hfa] 1 - 2 puff INHALATION RT-Q6H PRN 02/22/17 [ History] Furosemide [Lasix] 40 mg PO TID 02/22/17 [History] Potassium Chloride [Klor-Con 10] 10 meq PO BID 02/22/17 [History] ALPRAZolam [Xanax] 0.25 mg PO BID PRN 03/03/17 [History] Ergocalciferol [Vitamin D2] 50,000 unit PO MO 03/03/17 [History] Methylphenidate HCl [Ritalin] 20 mg PO TID 03/03/17 [History] Ondansetron [Zofran] 4 mg PO Q8HR PRN 03/03/17 [History] Gabapentin [Neurontin] 600 mg PO TID 04/04/17 [History] Methadone HCl [Methadone Intensol] 120 mg PO DAILY 04/04/17 [History] Follow up Appointment(s)/Referral(s): Elier Andrew MD [Primary Care Provider] - 1-2 days Discharge Disposition: Left Against Medical Advice
== END 2017-04-10 16:05 | disposition left against medical advice (07) | DRG 438 ==
LOC: EC 20:55 → 6ICU 22:42 → 6SEL 04-05 13:38 → 5MS5E 04-08 17:42
PROVIDERS: ADMIT Hospitalist; ATTEND Hospitalist
DX: K85.11 Biliary acute pancreatitis with uninfected necrosis (principal); E13.10 Other specified diabetes mellitus with ketoacidosis without coma; G35 Multiple sclerosis; E03.9 Hypothyroidism, unspecified; E78.5 Hyperlipidemia, unspecified; F17.200 Nicotine dependence, unspecified, uncomplicated; F43.20 Adjustment disorder, unspecified; R41.0 Disorientation, unspecified; F90.9 Attention-deficit hyperactivity disorder, unspecified type; G89.29 Other chronic pain; I10 Essential (primary) hypertension; J45.909 Unspecified asthma, uncomplicated; M19.90 Unspecified osteoarthritis, unspecified site; F41.9 Anxiety disorder, unspecified; L40.9 Psoriasis, unspecified; R01.1 Cardiac murmur, unspecified; F19.10 Other psychoactive substance abuse, uncomplicated; Z79.899 Other long term (current) drug therapy; Z88.8 Allergy status to other drugs, medicaments and biological substances
CPT/HCPCS: 36415; 71020; 74160; 74177; 80048; 80051; 80053; 81001; 82150; 82565; 82947; 83036; 83605; 83690; 83735; 84100; 84520; 85025; 86140; 87040; 87086; 93005; 94760; 96365; 96366; 96375; 99291

== ENCOUNTER 2017-08-26 12:46 | Emergency (ER) | payer BC, OTHER ==
[2017-08-26] MEDS ORDERED: RX INFO: IV CONTRAST WAS GIVEN 1 EACH MISC MISCELLANE PRN (13:50)
[2017-08-26 14:18] LABS: Basophils # (A) 0.1 k/uL (0-0.2); Basophils % (A) 1 %; Eosinophils # (A) 0.3 k/uL (0-0.7); Eosinophils % (A) 3 %; HCT 44.3 % (34.0-46.0); HGB 15.5 gm/dL (11.4-16.0); Lymphocytes # (A) 2.2 k/uL (1.0-4.8); Lymphocytes % (A) 21 %; MCH 29.2 pg (25.0-35.0); MCHC 34.9 g/dL (31.0-37.0); MCV 83.5 fL (80.0-100.0); Mean Platelet Volume 7.6; Monocytes # (A) 0.4 k/uL (0-1.0); Monocytes % (A) 3 %; Neutrophils # (A) 7.2 k/uL (1.3-7.7); Neutrophils % (A) 70 %; Platelet Count 280 k/uL (150-450); RDW 15.3 % (11.5-15.5); WBC 10.3 k/uL (3.8-10.6)
[2017-08-26 14:20] LABS: Appearance,Urine Clear (Clear); Bilirubin,Urine Negative (Negative); Blood,Urine Small (Negative); Color,Urine Light Yellow; Glucose,Urine (UA) Negative (Negative); Ketones,Urine Negative (Negative); Leukocyte Esterase,Urine Negative (Negative); Mucus,Urine Rare /hpf; Nitrite,Urine Negative (Negative); PH, Urine 5.5 (5.0-8.0); Protein,Urine 1+ (Negative); RBC,Urine 2 /hpf (0-5); Specific Gravity,Urine 1.007 (1.001-1.035); Squamous Epithelial Cell,Urine 1 /hpf (0-4); Urobilinogen,Urine <2.0 mg/dL (<2.0); WBC,Urine 1 /hpf (0-5)
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
[2017-08-26 14:36] LABS: Amphetamine Screen,Urine Not Detected (NotDetected); Barbiturate Screen,Urine Not Detected (NotDetected); Benzodiazepines Screen,Urine Detected (NotDetected); Cocaine Screen,Urine Not Detected (NotDetected); Methadone Screen, Urine Detected (NotDetected); Opiate Screen,Urine Not Detected (NotDetected); Oxycodone Screen, Urine Not Detected (NotDetected); Phencyclidine Screen,Urine Not Detected (NotDetected); Tricyclic Antidepressant,Urine Not Detected (NotDetected); Urn Cannabinoid Scrn Not Detected (NotDetected)
[2017-08-26] MEDS ORDERED: SODIUM CHLORIDE 0.9% 1,000 ML IV ONE (14:36)
[2017-08-26 14:44] LABS: Partial Thromboplastin Time 23.7 sec (22.0-30.0); Prothrombin Time 9.8 sec (9.0-12.0)
[2017-08-26 14:51] LABS: Creatine Kinase MB 2.9 ng/mL (0.0-2.4)
[2017-08-26 14:57] LABS: ALT 67 U/L (9-52); AST 173 U/L (14-36); Albumin 3.6 g/dL (3.5-5.0); Alcohol <10 mg/dL; Alkaline Phosphatase 129 U/L (38-126); Anion Gap 16 mmol/L; Blood Urea Nitrogen 15 mg/dL (7-17); Calcium 10.3 mg/dL (8.4-10.2); Carbon Dioxide 24 mmol/L (22-30); Chloride 92 mmol/L (98-107); Glucose 320 mg/dL (74-99); Potassium 4.2 mmol/L (3.5-5.1); Sodium 132 mmol/L (137-145); Total Bilirubin 0.7 mg/dL (0.2-1.3); Total Protein 7.6 g/dL (6.3-8.2)
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
[2017-08-26 16:40] VITALS: BP 141/73; PULSE 106; RESP 14; TEMP 98.2
[2017-08-30 16:19] LABS: Hepatitis A Antibody IgM Non-Reactive (Non-Reactive); Hepatitis B Core IgM Non-Reactive (Non-Reactive)
== END 2017-08-26 16:38 | disposition home or self-care (01) ==
LOC: EDBD → MERGE 12:46 → EC 12:46
DX: S60.211A Contusion of right wrist, initial encounter (principal); R10.9 Unspecified abdominal pain; M25.551 Pain in right hip; E11.9 Type 2 diabetes mellitus without complications; E78.5 Hyperlipidemia, unspecified; I10 Essential (primary) hypertension; E07.9 Disorder of thyroid, unspecified; M19.90 Unspecified osteoarthritis, unspecified site; F41.9 Anxiety disorder, unspecified; F17.200 Nicotine dependence, unspecified, uncomplicated; Z79.84 Long term (current) use of oral hypoglycemic drugs; Z79.899 Other long term (current) drug therapy; Z88.8 Allergy status to other drugs, medicaments and biological substances; Z90.49 Acquired absence of other specified parts of digestive tract; V49.59XA Passenger injured in collision with other motor vehicles in traffic accident, initial encounter; Y92.410 Unspecified street and highway as the place of occurrence of the external cause
CPT/HCPCS: 99285 ×2; 96360 ×2; 36415; 86900; 86901; 80053; 80074; 82550; 82553; 82009; 85025; 85610; 85730; 86850; 81001; 81025; 80306; 80320; 73110; 71046; 74177; Q9967

== ENCOUNTER → 2017-09-07 | Outpatient (CLI) | payer BC ==
--- NOTE | 2017-09-07 10:24 | US ---
EXAMINATION TYPE: US abdomen limited DATE OF EXAM: 09/07/2017 COMPARISON: NONE CLINICAL HISTORY: r94.5 elevated lft's. EXAM MEASUREMENTS: Liver Length: 19.8 cm Gallbladder Wall: surgically absent CBD: 0.5 cm Right Kidney: 14.7 x 6.0 x5.2 cm Pancreas: Tail obscured by overlying bowel gas Liver: hyperechoic, increased attenuation, decreased visualization of vessels suggestive of fatty in filtrate, enlarged Gallbladder: Surgically absent Evidence for sonographic Kaba's sign: no CBD: wnl Right Kidney: cyst noted measuring 1.4 x 1.1 x 1.0cm, measures large IMPRESSION: 1. Fatty hepatic infiltration with hepatomegaly. 2. Simple cyst right kidney.
--- NOTE | 2017-09-07 11:16 | US ---
EXAMINATION TYPE: US transvaginal DATE OF EXAM: 09/07/2017 COMPARISON: NONE CLINICAL HISTORY: R10.2 PELVIC PAIN,R94.5 ELEV LFTS. TECHNIQUE: Transvaginal (TV) Patient states she is unable to fill her bladder. Date of LMP: Patient states that she has irregular bleeding and is bleeding or spotting most days. EXAM MEASUREMENTS: Uterus: 9.6 x 5.1 x 5.1 cm Endometrial Stripe: 0.7 cm Right Ovary: not visualized due to overlying bowel gas Left Ovary: not visualized due to overlying bowel gas 1. Uterus: heterogeneous, in CHERI hypoechoic structures noted, largest two measuring 1.2 x 0.9 x 1.5cm and 0.9 x 0.7 x 1.1, cervix shows scattered echogenic foci 2. Endometrium: wnl 3. Right Ovary: Obscured by overlying bowel gas 4. Left Ovary: Obscured by overlying bowel gas 5. Posterior cul-de-sac: wnl IMPRESSION: 1. Probable leiomyomatous change of the uterus.
== END | disposition home or self-care (01) ==
LOC: RADUSWWP 08:29
PROVIDERS: ATTEND Internal Medicine
DX: K76.0 Fatty (change of) liver, not elsewhere classified (principal); R16.0 Hepatomegaly, not elsewhere classified; N28.1 Cyst of kidney, acquired; R10.2 Pelvic and perineal pain
CPT/HCPCS: 76705; 76830

== ENCOUNTER 2018-03-08 15:21 | Emergency (ER) | payer OTHER, BC ==
[2018-03-08 15:39] VITALS: RESP 20
--- NOTE | 2018-03-08 17:00 | XR ---
EXAMINATION TYPE: XR chest 2V DATE OF EXAM: 03/08/2018 COMPARISON: chest xray 08/26/2017 HISTORY: Pain, trauma TECHNIQUE: Frontal and lateral views of the chest are obtained. FINDINGS: There is no focal air space opacity, pleural effusion, or pneumothorax seen. The cardiac silhouette size is within normal limits. There is increased AP diameter chest. Multilevel spondylosis in the thoracic spine. The osseous structures are intact. IMPRESSION: No acute cardiopulmonary process.
--- NOTE | 2018-03-08 17:01 | XR ---
Left hand 3 views. History pain. Comparison none. FINDINGS: I see no fracture nor dislocation. Joint spaces are fairly normal. There are no erosions. IMPRESSION: Normal left hand.
[2018-03-08] MEDS ORDERED: TOPICAL SKIN ADHESIVE 1 EACH AMP TOPICAL ONE (17:06)
[2018-03-08] MEDS ORDERED: DIPH,PERTUS(ACELL)TETVAC-LF 0.5 ML VIAL IM ONE (17:06)
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
[2018-03-08 17:39] LABS: Basophils % (A) 0 %; Eosinophils # (A) 0.3 k/uL (0-0.7); Eosinophils % (A) 2 %; HCT 37.9 % (34.0-46.0); HGB 13.8 gm/dL (11.4-16.0); Lymphocytes # (A) 1.9 k/uL (1.0-4.8); Lymphocytes % (A) 13 %; MCH 29.7 pg (25.0-35.0); MCHC 36.3 g/dL (31.0-37.0); MCV 81.7 fL (80.0-100.0); Mean Platelet Volume 6.9; Monocytes # (A) 0.4 k/uL (0-1.0); Monocytes % (A) 3 %; Neutrophils # (A) 11.5 k/uL (1.3-7.7); Neutrophils % (A) 80 %; Platelet Count 196 k/uL (150-450); RBC 4.64 m/uL (3.80-5.40); RDW 14.4 % (11.5-15.5); WBC 14.3 k/uL (3.8-10.6)
[2018-03-08 17:47] LABS: Appearance,Urine Clear (Clear); Bilirubin,Urine Negative (Negative); Blood,Urine Small (Negative); Color,Urine Yellow; Glucose,Urine (UA) 4+ (Negative); Ketones,Urine Negative (Negative); Leukocyte Esterase,Urine Negative (Negative); Mucus,Urine Rare /hpf; Nitrite,Urine Negative (Negative); Protein,Urine 2+ (Negative); RBC,Urine 1 /hpf (0-5); Specific Gravity,Urine 1.017 (1.001-1.035); Squamous Epithelial Cell,Urine 4 /hpf (0-4); Urobilinogen,Urine <2.0 mg/dL (<2.0); WBC,Urine 2 /hpf (0-5)
[2018-03-08 17:48] LABS: ALT 42 U/L (9-52); AST 53 U/L (14-36); Albumin 3.8 g/dL (3.5-5.0); Alkaline Phosphatase 86 U/L (38-126); Anion Gap 13 mmol/L; Blood Urea Nitrogen 18 mg/dL (7-17); Calcium 8.9 mg/dL (8.4-10.2); Carbon Dioxide 25 mmol/L (22-30); Chloride 98 mmol/L (98-107); Glucose 284 mg/dL (74-99); Sodium 136 mmol/L (137-145); Total Bilirubin 0.4 mg/dL (0.2-1.3); Total Protein 6.8 g/dL (6.3-8.2)
[2018-03-08 17:51] LABS: Potassium 2.9 mmol/L (3.5-5.1)
[2018-03-08] MEDS ORDERED: POTASSIUM BICARBONATE/CIT AC 20 MEQ TABLET.EFF PO ONE (17:51)
[2018-03-08 17:56] LABS: Amphetamine Screen,Urine Not Detected (NotDetected); Benzodiazepines Screen,Urine Detected (NotDetected); Cocaine Screen,Urine Not Detected (NotDetected); Opiate Screen,Urine Not Detected (NotDetected); Phencyclidine Screen,Urine Not Detected (NotDetected); Urn Cannabinoid Scrn Not Detected (NotDetected)
[2018-03-08 17:57] LABS: Barbiturate Screen,Urine Not Detected (NotDetected); Methadone Screen, Urine Detected (NotDetected); Oxycodone Screen, Urine Not Detected (NotDetected); Tricyclic Antidepressant,Urine Not Detected (NotDetected)
[2018-03-08 18:04] LABS: HCG,Quantitative Serum 9792.2 mIU/mL
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
[2018-03-08 21:02] VITALS: BP 140/70; PULSE 92; TEMP 98.9
[2018-03-10 11:42] LABS: Serum Amphetamine Negative; Serum Barbiturates Negative; Serum Benzodiazepine Negative; Serum Cocaine Negative; Serum Methadone Positive; Serum Opiates Negative; Serum Phencyclidine Negative; Serum Propoxyphene Negative; Serum THC (Cannabis) Negative
== END 2018-03-08 20:35 | disposition home or self-care (01) ==
LOC: EC 15:21
DX: O9A.211 Injury, poisoning and certain other consequences of external causes complicating pregnancy, first trimester (principal); S61.412A Laceration without foreign body of left hand, initial encounter; S80.01XA Contusion of right knee, initial encounter; S10.91XA Abrasion of unspecified part of neck, initial encounter; S20.211A Contusion of right front wall of thorax, initial encounter; Z3A.01 Less than 8 weeks gestation of pregnancy; J45.909 Unspecified asthma, uncomplicated; E11.9 Type 2 diabetes mellitus without complications; E78.5 Hyperlipidemia, unspecified; I10 Essential (primary) hypertension; E07.9 Disorder of thyroid, unspecified; F90.9 Attention-deficit hyperactivity disorder, unspecified type; F41.9 Anxiety disorder, unspecified; M19.90 Unspecified osteoarthritis, unspecified site; F17.200 Nicotine dependence, unspecified, uncomplicated; Z23 Encounter for immunization; Z79.84 Long term (current) use of oral hypoglycemic drugs; Z79.899 Other long term (current) drug therapy; Z88.8 Allergy status to other drugs, medicaments and biological substances; Z91.048 Other nonmedicinal substance allergy status; Z91.010 Allergy to peanuts; V49.9XXA Car occupant (driver) (passenger) injured in unspecified traffic accident, initial encounter; Y92.410 Unspecified street and highway as the place of occurrence of the external cause
CPT/HCPCS: 36415; 70450; 71046; 72125; 76801; 76817; 80053; 80306; 80307; 80320; 81001; 84702; 85025; 86850; 86900; 86901; 90471; 90715; 99284

== ENCOUNTER 2018-04-30 12:29 | Emergency (ER) | payer BC ==
[2018-04-30 12:39] VITALS: BP 127/67; PULSE 92; RESP 18; TEMP 98.6
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
== END 2018-04-30 13:17 | disposition home or self-care (01) ==
LOC: EC 12:29
DX: O99.89 Other specified diseases and conditions complicating pregnancy, childbirth and the puerperium (principal); M79.645 Pain in left finger(s); O99.511 Diseases of the respiratory system complicating pregnancy, first trimester; J45.909 Unspecified asthma, uncomplicated; O24.111 Pre-existing type 2 diabetes mellitus, in pregnancy, first trimester; E11.9 Type 2 diabetes mellitus without complications; O10.911 Unspecified pre-existing hypertension complicating pregnancy, first trimester; O99.281 Endocrine, nutritional and metabolic diseases complicating pregnancy, first trimester; E78.5 Hyperlipidemia, unspecified; E07.9 Disorder of thyroid, unspecified; M19.90 Unspecified osteoarthritis, unspecified site; O99.341 Other mental disorders complicating pregnancy, first trimester; F90.9 Attention-deficit hyperactivity disorder, unspecified type; O99.331 Smoking (tobacco) complicating pregnancy, first trimester; F17.200 Nicotine dependence, unspecified, uncomplicated; Z79.891 Long term (current) use of opiate analgesic; Z79.84 Long term (current) use of oral hypoglycemic drugs; Z79.899 Other long term (current) drug therapy; Z88.8 Allergy status to other drugs, medicaments and biological substances; Z91.048 Other nonmedicinal substance allergy status; Z91.018 Allergy to other foods; Z3A.00 Weeks of gestation of pregnancy not specified
CPT/HCPCS: 99283